=== PATIENT | male | born 1990 | race Caucasian/White ===

== ENCOUNTER 2020-05-21 13:51 | Outpatient (REF) | payer OTHER, SELFPAY ==
[2020-05-21 14:54] LABS: Alanine Aminotransferase 32 U/L (0-40); Albumin Level 4.5 g/dL (3.5-5.0); Alkaline Phosphatase 52 U/L (39-117); Anion Gap 10 (12-20); Aspartate Amino Transferase 32 U/L (5-37); Bilirubin Total 1.2 mg/dL (0.0-1.0); Blood Urea Nitrogen 17 mg/dL (9-16); Calcium 9.7 mg/dL (8.4-10.2); Carbon Dioxide 26 mmol/L (22-29); Chloride 107 mmol/L (96-108); Cholesterol 210 mg/dL; Estimated Glomerular Filt Rate > 60; Glucose Fasting 94 mg/dL (60-99); HDL Cholesterol 41 mg/dL; LDL Cholesterol Calculated 137 mg/dl; Potassium 4.4 mmol/L (3.3-5.1); Sodium 139 mmol/L (135-145); Triglycerides 164 mg/dL
[2020-05-21 15:15] LABS: Syphilis Screen Nonreactive (Nonreactive)
[2020-05-21 15:16] LABS: TSH reflex Free T4 1.58 uIU/mL (0.32-4.0)
[2020-05-21 17:21] LABS: CT PCR NOT DETECTED (Not Detect.); NG PCR NOT DETECTED (Not Detect.)
[2020-05-23 07:55] LABS: HBc Num1 0.04 S/CO (0.00-0.79); HIV AB/AG Nonreactive (Nonreactive); HIV Num 1 0.06 S/CO (0.00-0.99); Hepatitis B Core Antibody Nonreactive (Nonreactive); ~HepC Num1 0.08 S/CO (0.00-0.79); ~Hepatitis C Antibody Nonreactive (Nonreactive)
[2020-05-23 08:13] LABS: HBS Num1 > 1000.00 mIU/mL (0-7.99); HBsAGNum1 0.32 S/CO (0.00-0.99); Hepatitis B Surface Antigen Negative (Negative); ~Hepatitis B Surface Antibody REACTIVE (Nonreactive)
== END 2020-05-21 13:52 | disposition home or self-care (01) ==
LOC: HO.LAB 13:51
PROVIDERS: PCP Family Medicine; Visit Provider Family Medicine
DX: Z00.00 Encounter for general adult medical examination without abnormal findings (principal); Z11.3 Encounter for screening for infections with a predominantly sexual mode of transmission
CPT/HCPCS: 80053; 80061; 84443; 86704; 86706; 86780; 86803; 87340; 87389; 87491; 87591

== ENCOUNTER 2021-06-24 08:02 | Outpatient (REF) | payer OTHER, SELFPAY ==
[2021-06-24 09:30] LABS: Alanine Aminotransferase 32 U/L (0-40); Albumin Level 4.3 g/dL (3.5-5.0); Alkaline Phosphatase 52 U/L (39-117); Anion Gap 12 (12-20); Aspartate Amino Transferase 25 U/L (5-37); Bilirubin Total 1.1 mg/dL (0.0-1.0); Blood Urea Nitrogen 14 mg/dL (9-16); Calcium 9.8 mg/dL (8.4-10.2); Carbon Dioxide 27 mmol/L (22-29); Chloride 107 mmol/L (96-108); Cholesterol 208 mg/dL; Estimated Glomerular Filt Rate > 60; Glucose Fasting 100 mg/dL (60-99); HDL Cholesterol 37 mg/dL; LDL Cholesterol Calculated 121 mg/dl; Potassium 4.2 mmol/L (3.3-5.1); Sodium 142 mmol/L (135-145); Total Protein 7.1 g/dL (6.5-8.0); Triglycerides 254 mg/dL
[2021-06-24 09:51] LABS: TSH reflex Free T4 2.14 uIU/mL (0.32-4.0)
[2021-06-24 12:03] LABS: HBc Num1 0.06 S/CO (0.00-0.79); HBsAGNum1 0.16 S/CO (0.00-0.99); Hepatitis B Core Antibody Nonreactive (Nonreactive); Hepatitis B Surface Antigen Negative (Negative); ~HepC Num1 0.09 S/CO (0.00-0.79); ~Hepatitis B Surface Antibody REACTIVE (Nonreactive); ~Hepatitis C Antibody Nonreactive (Nonreactive)
[2021-06-24 12:33] LABS: HIV AB/AG Nonreactive (Nonreactive)
[2021-06-24 12:38] LABS: HIV Num 1 0.05 S/CO (0.00-0.99)
[2021-06-24 12:44] LABS: Syphilis Screen Nonreactive (Nonreactive)
== END 2021-06-24 08:03 | disposition home or self-care (01) ==
LOC: HO.LAB 08:02
PROVIDERS: PCP Family Medicine; Visit Provider Family Medicine
DX: Z00.00 Encounter for general adult medical examination without abnormal findings (principal); Z11.3 Encounter for screening for infections with a predominantly sexual mode of transmission; Z13.220 Encounter for screening for lipoid disorders; Z13.29 Encounter for screening for other suspected endocrine disorder; Z11.59 Encounter for screening for other viral diseases
CPT/HCPCS: 36415; 80053; 80061; 84443; 86704; 86706; 86780; 86803; 87340; 87389

== ENCOUNTER 2021-12-02 08:23 | Outpatient (REF) | payer OTHER, SELFPAY ==
[2021-12-02 09:08] LABS: Estimated Average Glucose 94 mg/dL; Hemoglobin A1c % 4.9 %
[2021-12-02 09:35] LABS: Alanine Aminotransferase 27 U/L (0-40); Albumin Level 4.4 g/dL (3.5-5.0); Alkaline Phosphatase 46 U/L (39-117); Anion Gap 14 (12-20); Aspartate Amino Transferase 20 U/L (5-37); Bilirubin Total 0.6 mg/dL (0.0-1.0); Blood Urea Nitrogen 18 mg/dL (9-16); Calcium 9.4 mg/dL (8.4-10.2); Carbon Dioxide 26 mmol/L (22-29); Chloride 106 mmol/L (96-108); Cholesterol 231 mg/dL; Estimated Glomerular Filt Rate > 60; Glucose Fasting 98 mg/dL (60-99); HDL Cholesterol 37 mg/dL; LDL Cholesterol Calculated 158 mg/dl; Potassium 4.4 mmol/L (3.3-5.1); Sodium 142 mmol/L (135-145); Triglycerides 181 mg/dL
[2021-12-02 09:48] LABS: TSH reflex Free T4 2.33 uIU/mL (0.32-4.0)
== END 2021-12-02 08:24 | disposition home or self-care (01) ==
LOC: HO.LAB 08:23
PROVIDERS: PCP Family Medicine; Visit Provider Family Medicine
DX: Z00.00 Encounter for general adult medical examination without abnormal findings (principal); R73.01 Impaired fasting glucose
CPT/HCPCS: 36415; 80053; 80061; 83036; 84443

== ENCOUNTER 2022-04-21 19:21 | Emergency (ER) | payer OTHER, SELFPAY ==
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
[2022-04-21 20:19] VITALS: BP 141/87; PULSE 60; RESP 16; TEMP 36.8; O2SAT 98; BMI 27.3
--- OUTSIDE RECORDS SUMMARY | 2022-04-21 20:47 | XMS_ITS | Continuity of Care Document ---
:1990 Author Organization [facility] Care Team Providers Name Role Phone DOD-MS Unavailable Unavailable Problems Combined list of problems from Department of Defense and Veterans Affairs facilities. It does not include entries that were removed or entered in error. Problem Status Onset Date Problem Type Date of Comments Source Resolution Sprain of Inactive 06/21/2018 Condition DoD unspecified ligament of left ankle Low back pain Inactive 06/21/2018 Condition DoD Other hemorrhoids Inactive 03/03/2018 Condition D oD common cold Active Condition DoD gastroenteritis Active Condition DoD Medications Combined list of outpatient medications from Department of Defense and Veterans Affairs facilities. Medications provided include 1) outpatient medications from the last 15 months, and 2) patient-reported medications. Medication Details Route Status Patient Prescription Prescription Last Ordering Order Source Instructions Expires Number Dispense Provider Date Date cefdinir Ordered Ambulat 300 mg oral 0 total refill(s) ory capsule Pharmac y fluticasone fluticasone 50 mcg/inh nasal spray Ordered Ambulat 50 mcg/inh Start Date: 10/31/20 ory nasal spray Status: Ordered Pharmac y Allergies, Adverse Reactions, Alerts Combined list of allergies from Department of Defense and Veterans Affairs facilities. It does not include entries that were removed or entered in error. Substance Category Reaction Severity Reaction Status Date Comments S ource type Reported Penicillins Propensity Active Ambulatory to adverse 4 Pharm acy reactions to substance Immunizations Combined list of available immunizations from the Department of Defense and Veterans Affairs facilities. Immunization Series Date Administered Site Reaction Lot CVX Drug St atus Comments Source Given By Number Code Marketing Information Analyst Influenza, 0 12/01/ [id number] 150 SmithKline complet I nfluenza DoD injectable, 2021 ([facility]) ed , quadrivalent, inject abl preservative e, free quadrival ent, preservat shahla free influenza, 5 158 GlaxoSmithKli comple t influenza, injectable, quadrivalent Ambulat injectable, 2020 ne ed 12/14/20 ory quadrivalent Given P harmac y influenza, 9 S 158 [facility] complet i nfluenza DoD injectable, 2020 (SKB) ed , quadrivalent, inject abl contains e, preservative quadriv al ent, contains preservat shahla COVID Vaccine TRS PFIZER complet CO VID Vaccine ? Pfizer Ambulat ? Pfizer 2020 ed 12/04/20 or y Given Pharmac y COVID-19, 12/04/ FIELD, Pfizer Not COVID-1 9, DoD mRNA, LNP-S, 2020 Manufacturing Given mRNA, PF, 30 [place] LNP-S, mcg/0.3 mL (PFR) PF, 30 dose mcg/0.3 mL dose SARS-COV-2 0 12/04/ Unknown, TRS 208 Pfizer, Inc compl et SARS-COV- DoD (COVID-19) 2020 Provider (PFR) ed 2 vaccine, (COVID-19 mRNA, spike ) protein, LNP, vaccin e, preservative mRNA, free, 30 spike mcg/0.3mL protein, dose LNP, preservat shahla free, 30 mcg/0.3mL dose COVID Vaccine TRS PFIZER complet CO VID Vaccine ? Pfizer Ambulat ? Pfizer 2020 ed 10/30/20 ory Given Pharmac y COVID-19, FIELD, Pfizer Not COVID-1 9, DoD mRNA, LNP-S, 2020 Manufacturing Given mRNA, PF, 30 [place] LNP-S, mcg/0.3 mL (PFR) PF, 30 dose mcg/0.3 mL dose SARS-COV-2 0 10/30/ Unknown, TRS 208 Pfizer, Inc compl et SARS-COV- DoD (COVID-19) 2020 Provider (PFR) ed 2 vaccine, (COVID-19 mRNA, spike ) protein, LNP, vaccin e, preservative mRNA, free, 30 spike mcg/0.3mL protein, dose LNP, preservat shahla free, 30 mcg/0.3mL dose influenza, 150 Seqirus complet in fluenza, injectable, quadrivalent-pf Ambulat injectable, 2020 077 ed 02/26/20 ory quadrivalent- Given Pharmac pf y Influenza, 1 150 Seqirus (SEQ) comp let Influenza DoD injectable, 2020 077 ed , quadrivalent, inject abl preservative e, free quadrival ent, preservat shahla free influenza, [id number] Seqirus complet in fluenza, injectable, quadrivalent-pf Ambulat injectable, 2018 520 ed 11/09/18 ory quadrivalent- Given Pharmac pf y Influenza, 7 [id number] 150 Seqirus (SEQ) comp let Influenza DoD injectable, 2018 520 ed , quadrivalent, inject abl preservative e, free quadrival ent, preservat shahla free influenza, [id number] 158 Seqirus complet in fluenza, injectable, quadrivalent Ambulat injectable, 2018 ed 11/12/17 ory quadrivalent Given P harmac y yellow fever [id number] 37 sanofi complet y ellow fever vaccine Ambulat vaccine 2018 pasteur ed 11/12/17 or y Given Pharmac y yellow fever 1 [id number] 37 Sanofi complet y ellow DoD vaccine 2018 Pasteur (PMC) ed feve r vaccine influenza, 6 [id number] Seqirus (SEQ) comp let influenza DoD injectable, 2018 ed , quadrivalent, inject abl contains e, preservative quadriv al ent, contains preservat shahla anthrax 10/15/ [id number] 24 Emergent complet anth rax vaccine Ambulat vaccine 2018 Biosolutions ed 8 ory Given Pharmac y typhoid Vi [id number] sanofi complet typ hoid Vi capsular polysaccharide vac Ambulat capsular 2018 pasteur ed 10/15/17 or y polysaccharid Given Pharmac e vac y measles/mumps 10/15/ [id number] 03 Merck & complet measles/mumps/rubella virus vaccine Ambulat /rubella 2018 Company Inc ed 8 ory virus vaccine Given Pharmac y measles, 2 10/15/ [id number] 03 Merck (MSD) complet measles, DoD mumps and 2018 ed mumps and rubella virus rubell a vaccine virus vaccine anthrax 6 10/15/ [id number] 24 Emergent complet anth rax DoD vaccine 2018 Bio[employer]ense ed vaccine [place] ([facility]) typhoid Vi 1 [id number] Sanofi complet typ hoid DoD capsular 2018 Pasteur (PMC) ed Vi polysaccharid capsul ar e vaccine polysacch aride vaccine Influenza, [id number] Seqirus complet Inf luenza, inj, MDCK, quadrivalent-pf Ambulat inj, MDCK, 2017 ed 11/21/16 ory quadrivalent- Given Pharmac pf y Influenza, 1 [id number] Seqirus (SEQ) compl et Influenza DoD injectable, 2017 ed , Madin [place] injectab l Canine e, Madin Kidney, [place] preservative Canine free, Kidney, quadrivalent preserv at shahla free, quadrival ent anthrax A 24 Emergent complet anth rax vaccine Ambulat vaccine 2017 Biosolutions ed 7 ory Given Pharmac y anthrax 5 A 24 Emergent complet anth rax DoD [facility] vaccine [place] ([facility]) anthrax 03/20/ [id number] 24 Emergent complet anth rax vaccine Ambulat vaccine 2017 Biosolutions ed ory Given Pharmac y anthrax 4 03/20/ [id number] 24 Emergent complet anth rax DoD vaccine [facility] ed vaccine [place] ([facility]) influenza, 11/21/ CS979 140 GlaxoSmithKli comple t influenza, seasonal, injectable-pf Ambulat seasonal, 2015 ne ed 11/22/15 o ry injectable-pf Given Pharmac y Influenza, 1 [id number] 140 SmithKline complet I nfluenza DoD seasonal, 2016 (SKB) ed , injectable, seasonal , preservative injecta bl free e, preservat shahla free anthrax 07/18/ [id number] 24 Emergent complet anth rax vaccine Ambulat vaccine 2016 Biosolutions ed ory Given Pharmac y anthrax 3 07/18/ [id number] 24 Emergent complet anth rax [facility]D [facility] [place] ([facility]) anthrax 01/11/ [id number] 24 Emergent complet anth rax vaccine Ambulat vaccine 2015 Biosolutions ed ory Given Pharmac y anthrax 2 01/11/ [id number] 24 Emergent complet anth rax DoD vaccine [facility] ed vaccine [place] ([facility]) influenza, [id number] CSL [place] comple t influenza, seasonal, injectable Ambulat seasonal, 2014 1A ed 11/09/14 or y injectable Given Pha rmac y Influenza, 3 [id number] 141 CSL complet Infl uenza DoD seasonal, 2014 1A Biotherapies, ed , injectable Inc. (CSL) seas onal, injectabl e anthrax 10/19/ [id number] 24 Emergent complet anth rax vaccine Ambulat vaccine 2015 Biosolutions ed ory Given Pharmac y vaccinia 10/19/ VV04-00 75 [place] complet vacci linden (smallpox) vaccine Ambulat (smallpox) 2014 3A Healthcare ed 10/19 ory vaccine Corporation Given Pharmac y anthrax 1 10/19/ [id number] 24 Emergent complet anth rax DoD vaccine 2015 Bio[employer]ense ed vaccine [place] (MIP) vaccinia 1 10/19/ VV04-00 75 ACAMBIS-BAXTE comple t vaccinia DoD (smallpox) 2014 3A R HEALTH[facility]ARE ed (s mallpox vaccine (JACKSON) ) vaccine hepatitis A 3LP 52 GlaxoSmithKli compl et hepatitis A adult vaccine Ambulat adult vaccine 2014 ne ed 06/08/14 ory Given Pharmac y hepatitis B [id number] Merck & complet h epatitis B adult vaccine Ambulat adult vaccine 2015 Company Inc ed 06/08/14 ory Given Pharmac y influenza, 532 150 ID Biomedical comple t influenza, injectable, quadrivalent-pf Ambulat injectable, 2014 ed 06/08/14 o ry quadrivalent- Given Pharmac pf y hepatitis B 3 [id number] Merck (MSD) compl et hepatitis DoD vaccine, 2014 ed B adult dosage vaccine , adult dosage hepatitis A 3 3LP 52 SmithKline complet hepatitis DoD vaccine, 2014 (SKB) ed A adult dosage vaccine , adult dosage Influenza, 2 532 150 (IDB) complet Influe nza DoD injectable, 2014 ed , quadrivalent, inject abl preservative e, free quadrival ent, preservat shahla free hepatitis X72 104 GlaxoSmithKli complet hepatitis A-hepatitis B vaccine Ambulat A-hepatitis B 2013 ne ed 09/10/13 ory vaccine Given Pharma c y hepatitis A 1 X72 104 SmithKline complet hepatitis DoD and hepatitis 2013 (SKB) ed A and B vaccine hepatitis B vaccine measles/mumps [id number] Merck & complet measles/mumps/rubella virus vaccine Ambulat /rubella 2014 Company Inc ed ory virus vaccine Given Pharmac y hepatitis 925P2 104 GlaxoSmithKli complet hepatitis A-hepatitis B vaccine Ambulat A-hepatitis B 2013 ne ed 4 ory vaccine Given Pharma c y measles, 1 [id number] 03 Merck (MSD) complet measles, DoD mumps and 2014 ed mumps and rubella virus rubell a vaccine virus vaccine hepatitis A 1 P2 104 SmithKline complet hepatitis DoD and hepatitis 2013 (SKB) ed A and B vaccine hepatitis B vaccine tuberculin [id number] 96 sanofi complet tub erculin purified protein derivative Ambulat purified 2013 pasteur ed 07/19/13 o ry protein Given Pharma c derivative y tetanus, 472S7 115 GlaxoSmithKli complet tetanus, diphtheria, acellular pertussis Ambulat diphtheria, 2013 ne ed 07/19/13 ory acellular Given Phar mac pertu is y adenovirus [id number] 143 Teva complet jairo ovirus vaccine, live Ambulat vaccine, live 2013 1 Pharmaceutica ed 07/19/13 ory ls Given Pharmac y influenza, [id number] 141 sanofi complet inf luenza, seasonal, injectable Ambulat seasonal, 2013 pasteur ed 07/19/13 ory injectable Given Pha rmac y poliovirus [id number] 10 sanofi complet polio virus vaccine, inactivated Ambulat vaccine, 2013 pasteur ed 07/19/13 o ry inactivated Given Ph armac y meningococcal [id number] 114 sanofi complet meningococcal A,C,Y,W-135 (MCV4P) Ambulat A,C,Y,W-135 2013 pasteur ed 4 ory (MCV4P) Given Pharma c y poliovirus 1 [id number] 10 Sanofi complet polio viru DoD vaccine, 2013 Pasteur (PMC) ed s inactivated vaccine, inactivat ed meningococcal 1 07/19/ [id number] 114 Sanofi complet meningoco DoD polysaccharid 2013 Pasteur (PMC) ed ccal e (groups A, polysac ch C, Y and aride W-135) (groups diphtheria A, C, Y toxoid and conjugate W-135) vaccine diphtheri (MCV4P) a toxoid conjugate vaccine (MCV4P) tetanus 1 472S7 115 SmithKline complet teta nus DoD toxoid, 2013 (SKB) ed toxoid, reduced reduced diphtheria diphtheri toxoid, and a toxoid , acellular and pertu is acellular vaccine, pertussis adsorbed vaccine, adsorbed Influenza, 1 07/19/ [id number] 141 Sanofi complet Inf luenza DoD seasonal, 2014 Pasteur (PMC) ed , injectable seasonal, injectabl e Adenovirus, 1 [id number] 143 [place] complet Aisha noviru DoD type 4 and 2014 1 Laboratories ed s, type 4 type 7, live, (BRR) and ty pe oral 7, live, oral measles virus 0 () Not measl es DoD vaccine 2014 Given virus vaccine varicella 0 () Not varicella DoD virus vaccine 2014 Given virus vaccine Vital Signs Combined list of inpatient and outpatient Vital Signs from Department of Defense and Veterans Affairs, ranging from 12 months to all on record, depending upon the facility. Vital Sign Value Date Comments Source No data available for this section Ambulatory Pharmacy Encounters Combined list of: 1) Encounters from Department of Veterans Affairs facilities going back up to the last 18 months. 2) Encounters from the Department of Defense facilities going back up to 280 months. Location Location Encounter Encounter Reason Attending ADM DC Stat us Disposition Source Details Type Number For Provider Date Date Visit OUTPATIENT [id number] Notes ELEUTERIO, 07/23 Released w/o KAITLIN Smith Entered GRACIE ROMERO Limitations A ntonio by: JOSHUA Martínez nt Jul y, [place] 101[address](O ------- ptometr ------- y ------- Clinic ------- BMT -- [facility]) OUTPATIENT [id number] Notes AMBAR, 08/13 Sick at KAITLIN Smith Entered [facility]IL[facility] Home/Quarter An vince by: Bebeto Grullon Aug y, [place] 0[address](T ------- rainee ------- Health ------- [place], ------- [place] -- d) Diarrhe a OUTPATIENT [id number] f/u DANIELLE, 08/16 Relea sed w/o KAITLIN Smith diarrharvey DEEP [place]itations [place] [address]([address] [facility] [place], [place] d) OUTPATIENT [id number] Drew PADILLA, 12/15 Released w/o KAITLIN Smith Entered Limitations Anto nio by: JOYCE PADILLA, y TOM Treatme NOOSVALDO nt Dec y, [place] 10[address](A ------- FNG 104 ------- Med ------- Sq-FM) ------- -- PHAQ OUTPATIENT [id number] Drew RUTH, 10/13 Release d w/o KAITLIN Smith Entered Limitations Anto nio by: VIKTORIYA ayon ,STEPHARVEY Treatme Ankit kaiser Oct y, [place] 15[address](A ------- FNG 104 ------- Med ------- Sq-FM) ------- -- PHAQ OUTPATIENT [id number] Drew OTERO, 10/15 Release d w/o KAITLIN Smith Entered LORI Limitations Ant onio by: Edgar OTERO y ,LORI Nguyen J Oct y, [place] 0742 [address](A ------- FNG 104 ------- Med ------- Sq-FM) ------- -- [facility] [id number] Drew MATUTE, 10/28 68[facility] CONSULT Entered [place] [facility] by: (HAZEL GONZALEZ R Cell) 28 Oct 2017 1319 ------- ------- ------- ------- -- Malaria Meds OUTPATIENT [id number] Theater 03/03 Released w/o Theater Limitations Facil it y OUTPATIENT [id number] Theater 06/19 Released w/o Theater 4 Provider Limitations Facil it y OUTPATIENT [id number] Theater 06/21 Released w/o Theater 9 Provider Limitations Facil it y OUTPATIENT [id number] Drew PADILLA, 06/27 Released w/o KAITLIN Smith 6 Entered Limitations Anto nio by: VICKIE Vallejo EL June y, [place] 1325 [address](A ------- FNG 104 ------- Med ------- Sq-FM) ------- -- Post-Murphy t OUTPATIENT [id number] Drew VALERIE08/24 Released w/o KAITLIN Smith 8 Entered Limitations Anto nio by: JOYCE nany Le TOM Treatme N 18 nt Aug y, [place] [address](A ------- FNG 104 ------- Med ------- Sq-FM) ------- -- DRHA OUTPATIENT [id number] Drew VALERIE10/25 Released w/o KAITLIN Smith 2 Entered Limitations Anto nio by: JOYCE nany Le TOM Treatme N 18 nt Oct y, [place] 1154 [address](A ------- FNG 104 ------- Med ------- Sq-FM) ------- -- PHAQ OUTPATIENT [id number] Drew PADILLA, 11/09 Released w/o KAITLIN Smith 2 Entered Limitations Anto nio by: JOYCE nany Le TOM Treatme N nt Nov y, [place] 6725 [address](A ------- FNG 104 ------- Med ------- Sq-FM) ------- -- DRHA OUTPATIENT [id number] Drew PADILLA11/10 Released KAITLIN Smith 0 Entered with Nestor by: JOYCE Arteaga/Alea Renteria y TOM Treatme N nt Nov y, [place] 1211 [address](A ------- FNG 104 ------- Med ------- Sq-FM) ------- -- back pain OUTPATIENT [id number] Drew PADILLA, 03/08 Released KAITLIN Smith 3 Entered with Nestor by: JOYCE Work/Duty Alea Le y TOM Treatme NOONE nt Feb y, [place] 1203 [address](A ------- FNG 104 ------- Med ------- Sq-FM) ------- -- PHAQ OUTPATIENT [id number] Drew VALERIE03/13 Released KAITLIN Smith 1 Entered with Nestor by: JOYCE Work/Duty Alea Le y TOM Treatme NOONE nt Mar y, [place] [address](A ------- FNG 104 ------- Med ------- Sq-FM) ------- -- back pain f/u TELE [id number] Drew RIOS03/30 KAITLIN Smith CONSULT 8 Entered Nestor by: nany Brown Treatme NOONE nt Mar y, [place] 1011 [address](A ------- FNG 104 ------- Med ------- Sq-FM) ------- -- F/U OUTPATIENT [id number] Drew PADILLA03/28 Released w/o KAITLIN Smith 0 Entered Limitations Anto nio by: nany Brown TOM Treatme NOONE nt Mar y, [place] 1445 [address](A ------- FNG 104 ------- Med ------- Sq-FM) ------- -- PHAQ OUTPATIENT [id number] Drew RUTH 04/28 Release d w/o KAITLIN Smith 8 Entered Limitations Anto nio by: VIKTORIYA RUTH y ,QING Treatme N VIKTORIYA nt Apr Facilit 2021 y, [place] 5437 [address](A ------- FNG 104 ------- Med ------- Sq-FM) ------- -- PHAQ History [id number] 05/14 05/14 No 41823 /2021 Facilit y Access Lifetime [id number] 05/14 Ambula t Pharmacy 47 ory Pharmac y OUTPATIENT [id number] Notes , 04/09 Release d w/o KAITLIN Smith 6 Entered Limitations Anto nio by: VIKTORIYA RUTH QING ayon Apr Facilit 2022 y, [place] [address](A ------- FNG 104 ------- Med ------- Sq-FM) ------- -- PHAQ Procedures Combined list of: 1) Procedures from Department of Veterans Affairs facilities going back up to the last 18 months, not all VA non-surgical procedures are included; 2) All procedures from the Department of Defense facilities. Procedure Procedure Type Code Date Perfomer Comments Sourc e No data available Am bulatory for this section Pha rmacy Pulse Oximetry Pulse Oximetry 06937 08/17/19 [facility] 14 DEEP C Blood pre ure 08/17/19 [facility] cuff only 14 DEEP C Spectacles Spectacles 78760 [facility] F[facility] Services Fitting 14 R Monofocal Except Monofocal Except For Aphakia [place] [address] 07/24/19 [facility] Refractive State Refractive State 14 [place] [address] 07/24/19 [facility]OTT[facility] Pham [facility] Visual Acuity, Visual Acuity, 14 R Quantitative, Quantitative, Bilateral Bilateral Psychiatric Psychiatric [address] [facility] Diagnostic Diagnostic [facility] [place] Evaluation Evaluation Comprehensive Comprehensive Examination Examination Psychometric Psychometric 59314 [facility] Emotional / Emotional / [facility] [place] Behavioral A e Behavioral ment Assessment [facility] Management Individual Individual Patient Patient Clinical Social Clinical Social 54705 [facility] Work Counseling Work Counseling MIRYAM G Family Conjoint Family Conjoint Non-Physician Non-Physician [id number] MADHU, Do D Phone Call To Phone Call To [facility] [place] Patient/Provider Patient/Provider Brief (5-10min) Brief (5-10min) Waiver services; Dominick HILL not otherwise JACINTA A specified (NOS) BLOOD PRESSURE 08/17/19 DoD CUFF ONLY 14 THERAPEUTIC, 08/02/19 DoD PROPHYLACTIC, OR 14 DIAGNOSTIC INJECTION (SPECIFY SUBSTANCE OR DRUG); SUBCUTANEOUS OR INTRAMUSCULAR SCREENING TEST OF 07/24/19 Do D VISUAL ACUITY, 14 QUANTITATIVE, BILATERAL TELE ASSESS & MGT 02/05/20 Do D SRV PROV QUAL 20 NONPHYS HLTH CARE PRO TO EST PAT,PARENT,GUARD NOT ORIG REL ASSESS & MGT SRV PROV W/IN PREV 7 DAYS NOR LEAD ASSESS & MGT SRV/PX W/IN NXT 24 HR/SOON APT;5-10 MIN MED DIS TELE ASSESS & MGT 09/25/19 Do D SRV PROV QUAL 20 NONPHYS HLTH CARE PRO TO EST PAT,PARENT,GUARD NOT ORIG REL ASSESS & MGT SRV PROV W/IN PREV 7 DAYS NOR LEAD ASSESS & MGT SRV/PX W/IN NXT 24 HR/SOON APT;5-10 MIN MED DIS WAIVER SERVICES; 09/18/19 DoD NOT OTHERWISE 20 SPECIFIED (NOS) FAMILY 09/14/19 DoD PSYCHOTHERAPY 20 (CONJOINT PSYCHOTHERAPY) (WITH PATIENT PRESENT), 50 MINUTES BRIEF 09/11/19 DoD EMOTIONAL/BEHAVIO 20 RAL ASSESSMENT (EG, DEPRESSION INVENTORY, ATTENTION-DEFICIT /HYPERACTIVITY DISORDER [ADHD] SCALE), WITH SCORING AND DOCUMENTATION, PER STANDARDIZED INSTRUMENT BRIEF 09/07/19 DoD EMOTIONAL/BEHAVIO 20 RAL ASSESSMENT (EG, DEPRESSION INVENTORY, ATTENTION-DEFICIT /HYPERACTIVITY DISORDER [ADHD] SCALE), WITH SCORING AND DOCUMENTATION, PER STANDARDIZED INSTRUMENT PSYCHIATRIC 09/06/19 DoD DIAGNOSTIC 20 EVALUATION Social History Combined list of available smoking, tobacco, and other social history from Department of Defense andVeterans Affairs facilities. Social History Type Response Date Comment Source This section is an empty social history section. DoD Assessment and Plan Combined list of future care activities from Department of Defense and Veterans Affairs facilities (e.g., assessment and plan notes, appointments, orders, and referrals). Additional future care activities may be listed in the Plan of Care section. Result Assessment and Plan Date Source Assessment and Plan No data available for this 04/22/2022 A mbulatory Pharmacy section Functional Status Combined list of recent functional and cognitive assessments recorded at Department of Defense and Veterans Affairs (VA).VA Functional [place] Measurement (FIM) Scale: 1 = Total Assistance (Subject = 0% +), 2 = Maximal Assistance (Subject = 25% +), 3 = Moderate Assistance (Subject = 50% +), 4 = Mi nimal Assistance (Subject = 75% +), 5 = Supervision, 6 = Modified [place] (Device), 7 = Complete [place] (Timely, Safely). Assessment Source Assessment Type Assessment Assessment Assessmen t Date/Time Skill Score Details No data available for this section
--- OUTSIDE RECORDS SUMMARY | 2022-04-21 20:47 | XMS_ITS ---
:1990 Author Care Team Providers Name [id number] Unavailable Allergies Code Code System Name Reaction Severity Status Onset Penicillins ? ? Active ? Medications No Medications Reported Problems Name Status Onset Date Source ? 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 Procedures None recorded. Results Lab Results Date Name Specimen Result Interpretation Description Value Range Status Address ? 01/13/2022 CBC W/ BLOOD ? Wbc 5.7 3.4-10.8 Final [facility] x10e3/uL x10e3/uL [facility]: [address], [place] ? ? BLOOD ? Rbc 5.15 4.14-5.80 Final [facility]OUS x10e6/uL x10e6/uL [facility]: [address], [place] ? ? BLOOD ? Hemoglobin 16.0 g/dL 13.0-17.7 Final [facility] g/dL [facility]: [address], [place] ? ? BLOOD ? Hematocrit 46.1 % 37.5-51.0 Final [facility] % [facility]: [address], [place] ? ? BLOOD ? Mcv 90 fL 79-97 fL Final [facility]OUS [facility]: [address] [place] ? ? BLOOD ? Mch 31.1 pg 26.6-33.0 Final [facility]OUS pg [facility]: [address] [place] ? ? BLOOD ? Mchc 34.7 g/dL 31.5-35.7 Final [facility] g/dL [facility]: [address], [place] ? ? BLOOD ? Rdw 12.3 % 11.6-15.4 Final [facility] % [facility]: [address] [place] ? ? BLOOD Below Platelets 137 150-450 Final [facility] Low x10e3/uL x10e3/uL [facility]: [address] [place] ? ? BLOOD ? Neutrophils 64 % not Final [facility] estab. % [facility]: [address] [place] ? ? BLOOD ? Lymphs 23 % not Final [facility]OUS estab. % [facility]: [address] [place] ? ? BLOOD ? Monocytes 10 % not Final [facility] estab. % [facility]: [address], [place] ? ? BLOOD ? Eos 2 % not Final [facility]OUS estab. % [facility]: [address], [place] ? ? BLOOD ? Basos 1 % not Final [facility] estab. % [facility]: [address] [place] ? ? BLOOD ? Immature fish grader ? Cancelled [facility] Cells [facility]: [address], [place] ? ? BLOOD ? Neutrophils 3.6 1.4-7.0 Final [facility] V[facility] (Absolute) x10e3/uL x10e3/uL [facility]: [address], [place] ? ? BLOOD ? Lymphs 1.3 0.7-3.1 Final [facility]OUS (Absolute) x10e3/uL x10e3/uL [facility]: [address], [place] ? ? BLOOD ? Monocytes(ab 0.6 0.1-0.9 Final [facility] solute) x10e3/uL x10e3/uL [facility]: [address], [place] ? ? BLOOD ? Eos 0.1 0.0-0.4 Final [facility]ENOUS (Absolute) x10e3/uL x10e3/uL [facility]: [address], [place] ? ? BLOOD ? Baso 0.1 0.0-0.2 Final [facility] (Absolute) x10e3/uL x10e3/uL [facility]: [address], [place] ? ? BLOOD ? Immature 0 % not Final [facility] Granulocytes estab. % [facility]: [address], [place] ? ? BLOOD ? Immature 0.0 0.0-0.1 Final [facility] Grans (Abs) x10e3/uL x10e3/uL P [facility]: [address], [place] ? ? BLOOD ? Nrbc fish grader ? Cancelled [facility]OUS [facility]: [address] [place] ? ? BLOOD ? Hematology note: ? Final [facility] Comments: [facility]: [address] [place] 01/13/2022 CMP, BLOOD Above Glucose 100 mg/dL 70-99 Final [facility] Serum or VENOUS High mg/dL [facility]: [address] [place] ? ? BLOOD ? Bun 18 mg/dL 6-20 Final [facility] mg/dL [facility]: [address] [place] ? ? BLOOD ? Creatinine 0.99 0.76-1.27 Final [facility] mg/dL mg/dL [facility]: [address] [place] ? ? BLOOD ? Egfr 106 >59 Final [facility] mL/min/1. mL/min/1. [facility]: [address] [place] ? ? BLOOD ? BUN/creatini 18 9-20 Final [facility] VENOUS ne Ratio [facility]: [address] [place] ? ? BLOOD ? Sodium 140 134-144 Final [facility] mmol/L mmol/L [facility]: [address] [place] ? ? BLOOD ? Potassium 4.6 3.5-5.2 Final [facility] mmol/L mmol/L [facility]: [address] [place] ? ? BLOOD ? Chloride 103 96-106 Final [facility] mmol/L mmol/L [facility]: [address] [place] ? ? BLOOD ? Carbon 25 mmol/L 20-29 Final [facility] Dioxide, mmol/L [facility]: [address] [place] ? ? BLOOD ? Calcium 9.6 mg/dL 8.7-10.2 Final [facility] mg/dL [facility]: [address] [place] ? ? BLOOD ? Protein, 7.0 g/dL 6.0-8.5 Final [facility] Total g/dL [facility]: [address] [place] ? ? BLOOD ? Albumin 4.9 g/dL 4.1-5.2 Final [facility] g/dL [facility]: [address] [place] ? ? BLOOD ? Globulin, 2.1 g/dL 1.5-4.5 Final [facility] Total g/dL [facility]: [address] [place] ? ? BLOOD Above A/g Ratio 2.3 1.2-2.2 Final [facility] High [facility]: [address] [place] ? ? BLOOD ? Bilirubin, 0.9 mg/dL 0.0-1.2 Final [facility] Total mg/dL [facility]: [address] [place] ? ? BLOOD ? Alkaline 50 IU/L 44-121 Final [facility] Phosphatase IU/L [facility]: [address] [place] ? ? BLOOD ? Ast (Sgot) 20 IU/L 0-40 IU/L Final [facility]: [address] [place] ? ? BLOOD ? Alt (Sgpt) 24 IU/L 0-44 IU/L Final [facility]: [address] [place] 01/13/2022 Lipase, BLOOD ? Lipase 18 U/L 13-78 U/L Final [facility] Serum or VENOUS [facility]: [address] [place] Past Encounters Encounter Date Diagnosis Provider 01/13/2022 Abdominal Pain Katherine Cardona, DO: [address] [place] [address], Ph. Social History Tobacco Smoking Status Never Smoker Vaccine List Notes: covid; yes flu: yes td: yes Plan of Care Patient Instructions Brat diet consists of: Bananas Rice Applesauce Bertram. Use this diet for 24- 48 hours and adva nce if symptoms are improving. Abdominal pain can have a wide variety o f causes. Although we currently do not believe your pain is related to appendicitis or other serious cause, we cannot totally exclude the possibility of your symp toms being due a serious underlying prob maria elena. Unless ALL of your symptoms have COMPLETELY resolved, you should follow up at the nearest Emergency Department in 6 hours to be rechecked. If your pain worse ns, you should not hesitate to go to the Emergency Department to have your condition further evaluated. You should also follow up immediately if you develop any new symptoms which concern you, such as f ever, nausea, vomiting, rectal bleeding, or any other symptom that concerns you. Failure to follow up as instructed above may result in serious adverse health consequences, including permanent disability or . Reminders Provider Appointments None recorded. ? ? Lab None recorded. ? ? Referral None recorded. ? ? Procedures None recorded. ? ? Surgeries None recorded. ? ? Imaging None recorded. ? ? Vitals Height Weight BMI Blood Pressure 5 ft 7 in 200 lbs 31.3 kg/m2 144/81 mm[Hg]
[2022-04-21] MEDS: Cyclobenzaprine HCl 10 MG TABLET PO (21:56)
[2022-04-21] MEDS: Ibuprofen 400 MG TABLET PO (21:57)
== END 2022-04-21 22:10 | disposition home or self-care (01) ==
PROVIDERS: Emergency Provider Emergency Medicine Emergency Medical Services; PCP Family Medicine
DX: S80.01XA Contusion of right knee, initial encounter (principal); S33.5XXA Sprain of ligaments of lumbar spine, initial encounter; S43.102A Unspecified dislocation of left acromioclavicular joint, initial encounter; M25.512 Pain in left shoulder; M54.2 Cervicalgia; M25.561 Pain in right knee; T14.8XXA Other injury of unspecified body region, initial encounter; V43.52XA Car driver injured in collision with other type car in traffic accident, initial encounter; Y93.9 Activity, unspecified; Y92.410 Unspecified street and highway as the place of occurrence of the external cause; Y99.9 Unspecified external cause status
CPT/HCPCS: 72100; 73000; 73030; 73562; 99283

== ENCOUNTER 2022-06-30 09:49 | Outpatient (REF) | payer OTHER, SELFPAY ==
[2022-06-30 11:06] LABS: Alanine Aminotransferase 27 U/L (0-40); Albumin Level 4.2 g/dL (3.5-5.0); Alkaline Phosphatase 48 U/L (39-117); Anion Gap 11 (12-20); Aspartate Amino Transferase 23 U/L (5-37); Bilirubin Total 1.5 mg/dL (0.0-1.0); Blood Urea Nitrogen 10 mg/dL (9-16); Calcium 9.5 mg/dL (8.4-10.2); Carbon Dioxide 27 mmol/L (22-29); Chloride 107 mmol/L (96-108); Cholesterol 225 mg/dL; Estimated Glomerular Filt Rate > 60; Glucose Fasting 95 mg/dL (60-99); HDL Cholesterol 38 mg/dL; LDL Cholesterol Calculated 158 mg/dl; Potassium 4.3 mmol/L (3.3-5.1); Sodium 141 mmol/L (135-145); Total Protein 6.8 g/dL (6.5-8.0); Triglycerides 147 mg/dL
== END 2022-06-30 09:50 | disposition home or self-care (01) ==
LOC: HO.LAB 09:49
PROVIDERS: PCP Family Medicine; Visit Provider Family Medicine
DX: Z00.00 Encounter for general adult medical examination without abnormal findings (principal); R73.01 Impaired fasting glucose; E78.5 Hyperlipidemia, unspecified
CPT/HCPCS: 36415; 80053; 80061

== ENCOUNTER → 2022-07-26 11:24 | Outpatient (BNVA) | payer OTHER, SELFPAY | PROVIDERS: PCP Family Medicine; Visit Provider Physician Assistant | DX: M53.3 Sacrococcygeal disorders, not elsewhere classified (principal); M54.9 Dorsalgia, unspecified; G89.29 Other chronic pain | CPT/HCPCS: 99202 ==

== ENCOUNTER 2022-09-09 14:32 | Outpatient (REF) | payer OTHER, SELFPAY ==
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
== END 2022-09-09 14:33 | disposition home or self-care (01) ==
LOC: HO.MRI 14:32
PROVIDERS: PCP Family Medicine; Visit Provider Physician Assistant
DX: M54.9 Dorsalgia, unspecified (principal)
CPT/HCPCS: 72148

== ENCOUNTER 2022-09-23 08:33 | Outpatient (AMB) | payer OTHER, SELFPAY ==
[2022-09-23 08:40] VITALS: BP 112/62; PULSE 55; RESP 12; TEMP 36.5; O2SAT 99; BMI 32.0
--- NOTE | 2022-09-23 08:40 | MHC.PC.OV ---
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 Accompanied by: Self / Same As Patient Allergies amoxicillin [Augmentin] Allergy (Unknown, Verified 09/23/22 08:44) jaime Johnathon's Syndrome clavulanic acid [Augmentin] Allergy (Unknown, Verified 09/23/22 08:44) Jaime Johnathon's Syndrome macrolides Allergy (Unknown, Uncoded 07/08/22 08:59) Jaime Johnathon's Syndrome zithramax Allergy (Unknown, Uncoded 07/08/22 08:59) Jaime Johnathon's Syndrome Tobacco use date assessed: 09/23/22 Dental Screening Dental Screen Date: 09/23/22 Did you have a dental visit in the last 12 months?: Yes Did you have a dental problem in the last 6 months where you did not have access to dental care?: No Was dental information given to patient?: Patient has dentist HPI paperwork HPI Details 32 y/o male presents today for paperwork. Ongoing SI joint pain and has been seeing Darci Duncan. He is waiting a call from them for another appointment. He continues to do physical therapy which has been helping significantly. HPI Comments History of Present Illness Details Documentation assistance for Aldair Baca MD, was provided by Dane Cabrera,? Medical Aides Teacher on 09/23/2022 9:24 AM EST. [place], Dr. Baca, have read, observed, and verified documentation.? [facility] Medical History (Updated 09/23/22 @ 08:45 by Gabby Ly MA) No pertinent past medical history Surgical History (Updated 09/23/22 @ 08:45 by Gabby Ly MA) No pertinent past surgical history Social History Housing: House Alcohol intake: current Alcohol intake frequency: holidays/special occasions only Alcohol type: beer Patient Tobacco Use Status: Never used Tobacco e-Cigarette/Vaping Use: Never Used Second Hand Smoke Exposure: No service: Yes Current occupational status: employed Current occupation: [employer] Current occupational exposures/hazards: No Cognitive needs: No Hearing needs: No Vision needs: No Questionnaire Thrive Questionnaire Date Thrive assessed: 07/01/21 Review of Systems Const Denies chills, Denies fatigue, Denies fever(s), Denies headache(s) and Denies weakness ENT Denies dizziness and Denies headache(s) Card Denies dyspnea Resp Denies cough, Denies dyspnea, Denies wheezing and Denies other (shortness of breath) Musc Denies numbness and Denies tingling Neuro Denies dizziness, Denies headache(s), Denies numbness, Denies tingling and Denies weakness Psych Denies anxiety and Denies depression Endo Denies fatigue Aller/Immun Denies wheezing Physical exam (Primary Care) Vital Signs: Last Vital Signs Temp 97.7 F 09/23/22 08:40 Pulse 55 09/23/22 08:40 Resp 12 09/23/22 08:40 BP 112/62 09/23/22 08:40 Pulse Ox 99 09/23/22 08:40 Oxygen Delivery Method Room Air 09/23/22 08:40 BMI result Body Mass Index 32.0 Tobacco/Smoking Status: Tobacco use Status Tobacco use date assessed 09/23/22 09/23/22 08:46 Patient Tobacco Use Status Never used Tobacco 09/23/22 08:46 e-Cigarette/Vaping Use Never Used 09/23/22 08:46 Thrive Assessment: Date of Thrive Assessment Date Thrive assessed 07/01/21 09/23/22 08:46 Const General: well developed; No acute distress Nutritional Appearance: well nourished Orientation/consciousness: patient oriented x3 HENMT Head: Yes normocephalic and Yes atraumatic Eyes General: appearance normal, both eyes and all related structures Pupils: Equal, round and reactive pupils present EOM: EOMs intact bilaterally Resp Effort & Inspection: normal respiratory effort Neuro General: patient oriented x3 and gait normal Cranial nerves: Yes Equal, round and reactive pupils present Psych Affect: normal affect Assessment and Plan Assessment & Plan (1) Chronic SI joint pain: Code(s): M53.3 - Sacrococcygeal disorders, not elsewhere classified; G89.29 - Other chronic pain Plan: Ongoing right SI joint pain and inflammation which is chronic. Some improvement with physical therapy and he will continue this. Can continue celecoxib as well Follow-up with Neuro/spine; plan for right SI joint nerve block or injection therapy. Filled out [employer] forms for patient for restrictions He is unable to sit or stand greater than 1 hour without taking a break to walk for 5-10 minutes Discussed that he may benefit from a standing desk as well. Coding Level of Care Code Est Pt Level 3 (46858) Diagnoses Chronic SI joint pain M53.3; G89.29
== END 2022-09-23 09:32 | disposition home or self-care (01) ==
PROVIDERS: PCP Family Medicine; Visit Provider Family Medicine
DX: M53.3 Sacrococcygeal disorders, not elsewhere classified (principal); G89.29 Other chronic pain
CPT/HCPCS: 99213

== ENCOUNTER 2022-10-13 14:00 | Outpatient (RCR) | payer OTHER, SELFPAY ==
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
== END 2022-12-01 14:33 | disposition home or self-care (01) ==
LOC: HO.PTWFD 14:00
PROVIDERS: PCP Family Medicine; Visit Provider Family Medicine
DX: M54.9 Dorsalgia, unspecified (principal)
CPT/HCPCS: 97012; 97014; 97110; 97140; 97150; 97161; 97535

== ENCOUNTER 2023-07-20 11:25 | Outpatient (AMB) | payer OTHER, SELFPAY ==
[2023-07-20 11:48] VITALS: PULSE 64; O2SAT 98; BMI 32.1
--- NOTE | 2023-07-20 11:48 | AM.OFFWIN_ITS ---
Intake Vital Signs 3 07/20/23 11:48 Height 5 ft 8 in Weight 211 lb BMI 32.1 Pulse 64 Pulse Source Pulse Oximeter Pulse Oximetry (%) 98 Oxygen Delivery Method Room Air Intake Visit Reasons: est/ need order for blood work std testing Patient Tobacco Use Status: Never used Tobacco Allergies amoxicillin [Augmentin] Allergy (Unknown, Verified 07/20/23 11:49) jaime Johnathon's Syndrome clavulanic acid [Augmentin] Allergy (Unknown, Verified 07/20/23 11:49) Jaime Johnathon's Syndrome macrolides Allergy (Unknown, Uncoded 07/20/23 11:49) Jaime Johnathon's Syndrome zithramax Allergy (Unknown, Uncoded 07/20/23 11:49) Jaime Johnathon's Syndrome Medication List - Last Reconciled 07/20/23 by LINDA Forrest atorvastatin 20 mg PO BEDTIME 90 days celecoxib 200 mg PO BID 30 days cetirizine 10 mg PO DAILY PRN fluticasone propionate 50 mcg/actuation (Flonase Allergy Relief) 1 spray intranasal Q12H 30 days HPI HPI Comments 2 History of Present Illness0 Details Here today w/ concerns for STD new partner shortly after developed canker sore right upper gum went to 1 week ago. Given topical lidocaine. Did not start Since has developed some newer ulcers in the same area Would like to be tested and screened for all STD Does not have any other sx, including constitutional or PFSH Medical History (Updated 07/20/23 @ 11:54 by LINDA Forrest) No pertinent past medical history Surgical History (Updated 09/23/22 @ 08:45 by AGUSTIN Easley) No pertinent past surgical history Social History Housing: House Alcohol intake: current Alcohol intake frequency: holidays/special occasions only Alcohol type: beer Patient Tobacco Use Status: Never used Tobacco e-Cigarette/Vaping Use: Never Used Second Hand Smoke Exposure: No service: Yes Current occupational status: employed Current occupation: [employer] Current occupational exposures/hazards: No Cognitive needs: No Hearing needs: No Vision needs: No Review of Systems Const All systems reviewed & are unremarkable except as noted in HPI and below Physical Exam Const Other: awake alert NAD HEENT Throat image: 2 1. aphthous ulcer gingiva right upper does not look herpetic throat clear Assessment & Plan Assessment & Plan (1) Oral ulceration: Code(s): K12.1 - Other forms of stomatitis (2) Encounter for screening examination for sexually transmitted disease: Code(s): Z11.3 - Encounter for screening for infections with a predominantly sexual mode of transmission Plan . This note is constructed using voice recognition software. While every effort has been made to ensure accuracy in production scheduler, still errors may have been included Sometimes, these errors may affect the content or meaning of the given sentence . Total time spent caring for the patient today was 30 minutes. This includes time spent before the visit reviewing the chart, time spent during the visit, and time spent after the visit on documentation Orders: Orders 2 HIV Ab/Ag Today K12.1 - Other forms of stomatitis, Z11.3 - Encounter for screening for infections with a predominantly sexual mode of transmission Herpes Simplex Virus Ab IgG Today K12.1 - Other forms of stomatitis, Z11.3 - Encounter for screening for infections with a predominantly sexual mode of transmission CT NG by PCR Today K12.1 - Other forms of stomatitis, Z11.3 - Encounter for screening for infections with a predominantly sexual mode of transmission Syphilis Screen Today K12.1 - Other forms of stomatitis, Z11.3 - Encounter for screening for infections with a predominantly sexual mode of transmission Hepatitis B Surface Antigen Today K12.1 - Other forms of stomatitis, Z11.3 - Encounter for screening for infections with a predominantly sexual mode of transmission Hepatitis C Antibody Today K12.1 - Other forms of stomatitis, Z11.3 - Encounter for screening for infections with a predominantly sexual mode of transmission Medications: New 2 triamcinolone acetonide 0.1% use after food and/or drink and/or oral hygiene 1 appl dental TID 5 grams 0RF Patient Instructions: SCreening labs placed today They will be posted to the portal the area of concern today does not look like an STD, rather a canker sore Use the RX cream as directed. Use baking soda and h20 rinses and avoid acid, tobacco, hard brushing and other irritants to prevent recurrence. RTO as needed. Coding Level of Care Code Est Pt Level 4 (63310) Diagnoses Oral ulceration K12.1 Encounter for screening examination for sexually transmitted disease Z11.3
== END 2023-07-20 12:00 | disposition home or self-care (01) ==
PROVIDERS: PCP Family Medicine; Visit Provider Nurse Practitioner Family
DX: K12.1 Other forms of stomatitis (principal); Z11.3 Encounter for screening for infections with a predominantly sexual mode of transmission
CPT/HCPCS: 99214

== ENCOUNTER 2023-07-20 12:09 | Outpatient (REF) | payer OTHER, SELFPAY ==
[2023-07-21 08:15] LABS: HBsAGNum1 0.28 S/CO (0.00-0.99); HIV AB/AG Nonreactive (Nonreactive); HIV Num 1 0.21 S/CO (0.00-0.99); Hepatitis B Surface Antigen Negative (Negative); ~HepC Num1 0.11 S/CO (0.00-0.79); ~Hepatitis C Antibody Nonreactive (Nonreactive)
[2023-07-21 08:19] LABS: Syphilis Screen Nonreactive (Nonreactive)
[2023-07-22 03:57] LABS: Herpes Simplex Type 1 IgG <0.90 index; Herpes Simplex Type 2 IgG <0.90 index
== END 2023-07-20 12:10 | disposition home or self-care (01) ==
LOC: HO.WFDLDS 12:09
PROVIDERS: Visit Provider Nurse Practitioner Family
DX: Z11.3 Encounter for screening for infections with a predominantly sexual mode of transmission (principal); K12.1 Other forms of stomatitis
CPT/HCPCS: 36415; 86695; 86696; 86780; 86803; 87340; 87389

== ENCOUNTER 2024-10-29 14:30 | Outpatient (AMB) | payer OTHER, SELFPAY ==
--- NOTE | 2024-10-29 14:34 | MHC.PC.OV ---
Vital Signs 10/29/24 14:39 Height 5 ft 8 in Weight 239 lb 4 oz BMI 36.4 BP 106/68 Blood Pressure Location Rt brachial Position Sitting Respiration 14 Pulse 87 Pulse Source Pulse Oximeter Temp 98.7 F Temp Source Oral Pulse Oximetry (%) 97 Oxygen Delivery Method Room Air Intake Visit Reasons: f/u hyperlipidemia /Weakness/test step throat Intake Note: Follow up cholesterol. Experiencing fatigue everyday, started in June, even when getting 7-8 hours of sleep. Went to a walk in a couple months ago for strep throat, was trying to find out if he was a carry. Symptoms have resolved. High Value Associate Required: No Allergies amoxicillin (Augmentin) Allergy (Unknown, Verified 10/29/24 14:37) jaime Johnathon's Syndrome clavulanic acid (Augmentin) Allergy (Unknown, Verified 10/29/24 14:37) Jaime Johnathon's Syndrome macrolides Allergy (Unknown, Uncoded 10/29/24 14:37) Jaime Johnathon's Syndrome zithramax Allergy (Unknown, Uncoded 10/29/24 14:37) Jaime Johnathon's Syndrome Medication List - Last Reconciled 10/29/24 by Aldair Baca MD atorvastatin 20 mg PO BEDTIME 90 days celecoxib 200 mg PO BID 30 days cetirizine 10 mg PO DAILY PRN fluticasone propionate 50 mcg/actuation (Flonase Allergy Relief) 1 spray intranasal Q12H 30 days triamcinolone acetonide 0.1% 1 appl dental TID Tobacco use date assessed: 10/29/24 Dental Screening Dental Screen Date: 10/29/24 HPI f/u hyperlipidemia /Weakness/test step throat HPI Details 34 y/o male presents today with complaints of fatigue. Notes he has been significantly tired the past few months. He states he feels tired after lunch. He notes he gasps throughout the night and snores but does not remember much of it. No recent labs to review for his lipids. [facility] Medical History (Updated 10/29/24 @ 15:02 by Dane Cabrera) No pertinent past medical history Surgical History (Updated 09/23/22 @ 08:45 by AGUSTIN Easley) No pertinent past surgical history Social History Housing: House Alcohol intake: current Alcohol intake frequency: holidays/special occasions only Alcohol type: beer Patient Tobacco Use Status: Never used Tobacco e-Cigarette/Vaping Use: Never Used Second Hand Smoke Exposure: No service: Yes Current occupational status: employed Current occupation: [employer] Current occupational exposures/hazards: No Cognitive needs: No Hearing needs: No Vision needs: No Questionnaire PHQ-9 Over the last 2 weeks, how often have you been bothered by any of the following problems? 1. Little interest or pleasure in doing things: not at all 2. Feeling down, depressed, or hopeless: not at all 3. Trouble falling or staying asleep, or sleeping too much: not at all 4. Feeling tired or having little energy: not at all 5. Poor appetite or overeating: not at all 6. Feeling bad about yourself - or that you are a failure or have let yourself or your family down: not at all 7. Trouble concentrating on things, such as reading the newspaper or watching television: not at all 8. Moving or speaking so slowly that other people could have noticed. Or the opposite - being so fidgety or restless that you have been moving around a lot more than usual: not at all 9. Thoughts that you would be better off or of hurting yourself in some way: not at all Total score: 0 Source: Developed by Drs. Jerman Oliveira, Suze Armendariz, Emre Bullock and colleagues, with an educational lashawn from [employer]. Thrive Questionnaire Date Thrive assessed: 07/01/21 I am a: Patient What is your living situation today?: I choose not to answer this question Within the past 12 months, did the food you bought not last and you didn't have the money to get more?: I choose not to answer this question Within the past 12 months, did you worry whether your food would run out before you got money to buy more?: I choose not to answer this question Do you have trouble paying for medicines?: I choose not to answer this question Do you have trouble getting transportation to medical appointments?: I choose not to answer this question Do you have trouble paying your heating and electricity bill?: I choose not to answer this question Do you have trouble taking care of your child, family member or friend?: I choose not to answer this question Do you have trouble with day-to-day activities such as bathing, preparing meals, shopping, managing finances, etc.?: I choose not to answer this question Are you currently unemployed and looking for a job?: I choose not to answer this question Are you interested in more education?: I choose not to answer this question Please select the resources that you would like help with: None Currently or been in a relationship where the following occur: I choose not to answer THRIVE Score: 0 AUDIT C Alcohol Use Questionnaire (AUDIT-C) 1. How often do you have a drink containing alcohol?: 2-3 times a week (8 drinks max a week) 2. How many drinks containing alcohol do you have on a typical day when you are drinking?: 1 or 2 3. How often do you have six or more drinks on one occasion?: Never Total Score: 3 AMY-7 AMB Questionnaire AMY-7 Feeling nervous, anxious, or on edge: 0 = Not at all Not being able to stop or control worryin = Not at all Worrying too much about different things: 0 = Not at all Trouble relaxin = Not at all Being so restless that it is hard to sit still: 0 = Not at all Becoming easily annoyed or irritable: 0 = Not at all Feeling afraid as if something awful might happen: 0 = Not at all Total AMY-7 score (0-4 normal; 5-9 mild; 10-14 moderate; 15-21 severe): 0 Source: Developed by Drs. Jerman Oliveira, Suze Armendariz, Emre Bullock and colleagues, with an educational lashawn from [employer]. Review of Systems Const Denies chills, Reports fatigue, Denies fever(s), Denies headache(s) and Denies weakness ENT Denies dizziness and Denies headache(s) Card Denies dyspnea Resp Denies cough, Denies dyspnea, Denies wheezing and Denies other (shortness of breath) Musc Denies numbness and Denies tingling Neuro Denies dizziness, Denies headache(s), Denies numbness, Denies tingling and Denies weakness Psych Denies anxiety and Denies depression Endo Reports fatigue Aller/Immun Denies wheezing Physical exam (Primary Care) Vital Signs: Last Vital Signs Temp 98.7 F 10/29/24 14:39 Pulse 87 10/29/24 14:39 Resp 14 10/29/24 14:39 BP 106/68 10/29/24 14:39 Pulse Ox 97 10/29/24 14:39 Oxygen Delivery Method Room Air 10/29/24 14:39 BMI result Body Mass Index 36.4 Tobacco/Smoking Status: Tobacco use Status Tobacco use date assessed 10/29/24 10/29/24 14:43 Patient Tobacco Use Status Never used Tobacco 10/29/24 14:43 e-Cigarette/Vaping Use Never Used 10/29/24 14:43 PHQ-9: PHQ-9 Score PHQ-9: Total score 0 10/29/24 14:43 Thrive Assessment: Date of Thrive Assessment Date Thrive assessed 07/01/21 10/29/24 14:43 Currently or been in a relationship where the following occur: I choose not to answer Const General: well developed; No acute distress Nutritional Appearance: well nourished Orientation/consciousness: patient oriented x3 HENMT Head: Yes normocephalic and Yes atraumatic Eyes General: appearance normal, both eyes and all related structures Pupils: Equal, round and reactive pupils present EOM: EOMs intact bilaterally Resp Effort & Inspection: normal respiratory effort Auscultation: clear to auscultation bilaterally Cardio Rate: regular rate Rhythm: regular rhythm Heart sounds: S1 normal heart sound present, S2 normal heart sound present, no gallops, no murmurs and no rubs Neuro General: patient oriented x3 and gait normal Cranial nerves: Yes Equal, round and reactive pupils present Psych Affect: normal affect Coding Level of Care Code Est Pt Level 3 ([id number]) Diagnoses Hypersomnia G47.10 Throat discomfort R07.0 Assessment & Plan Assessment & Plan (1) Hypersomnia: Code(s): G47.10 - Hypersomnia, unspecified Category: Medical Plan: Significant snoring and gasping while sleeping. Unrestful sleep and weeks of tired in the morning. Daytime sleepiness Thick neck Referred to Sleep Medicine Check labs Will follow-up in a couple of months (2) Throat discomfort: Code(s): R07.0 - Pain in throat Category: Medical Plan: Throat appears normal Orders: Orders TSH reflex Free T4 Today Z00.00 - Encounter for general adult medical examination without abnormal findings UA CC w/rflx Micro + Cult Today Z00.00 - Encounter for general adult medical examination without abnormal findings HIV Ab/Ag Today Z11.3 - Encounter for screening for infections with a predominantly sexual mode of transmission Hepatitis B,C Profile Today Z11.3 - Encounter for screening for infections with a predominantly sexual mode of transmission Testosterone, Free/Total Today R53.83 - Other fatigue Complete Blood Count Auto Diff Today Z00.00 - Encounter for general adult medical examination without abnormal findings Comprehensive Gipsy. Panel Fast Today Z00.00 - Encounter for general adult medical examination without abnormal findings Lipid Panel Today Z00.00 - Encounter for general adult medical examination without abnormal findings Microalbumin, Random (w Creat) Today I10 - Essential (primary) hypertension Vitamin B12 and Folate Today E53.8 - Deficiency of other specified B group vitamins Vitamin D 25-OH Total Today E55.9 - Vitamin D deficiency, unspecified IRON PROFILE Today R53.83 - Other fatigue Monotest Today R53.83 - Other fatigue
[2024-10-29 14:39] VITALS: BP 106/68; PULSE 87; RESP 14; TEMP 37.1; O2SAT 97; BMI 36.4
== END 2024-10-29 15:02 | disposition home or self-care (01) ==
LOC: HO.HMCFM 14:31
PROVIDERS: PCP Family Medicine; Visit Provider Family Medicine
DX: G47.10 Hypersomnia, unspecified (principal); R07.0 Pain in throat

== ENCOUNTER → 2024-10-29 14:30 | Outpatient (BNVA) | payer OTHER, SELFPAY | PROVIDERS: PCP Family Medicine; Visit Provider Family Medicine | DX: R07.0 Pain in throat (principal); R53.83 Other fatigue; G47.10 Hypersomnia, unspecified; E53.8 Deficiency of other specified B group vitamins; E55.9 Vitamin D deficiency, unspecified | CPT/HCPCS: 96127; 99212 ==

== ENCOUNTER 2024-12-20 09:24 | Outpatient (REF) | payer OTHER, SELFPAY ==
--- OUTSIDE RECORDS SUMMARY | 2024-12-20 10:46 | XMS_ITS | Data Portability ---
Author Organization [facility], [address] Address [address] [place] [address] Assessment Encounter Date Assessment Date Assessment LastModified by Organization Details LastModified Time 01/13/2022 01/13/2022 R mid abdominal pain x 5-6 hours. No evidence of acute abdomen. Recommend liquid diet with progression to BRAT diet as tolerated, labs, phone follow up in the AM. ED precautions. Not available 01/13/2022 10:25:39 Plan of Treatment Reminders Order Date Submit Date Provider Last Modified By Organization Details Last Modified Time Details Appointments None recorded. Lab rapid strep group A, throat 2023 024 [email or web address] [facility] [address] [place], [address], 4 16:34:15 streptococc us group A, culture, throat 2023 024 LAURIE [facility] ([place]), [address] [place], [address], 4 06:08:15 CBC w/ auto diff 2021 022 [email or web address] [facility] ([place]), [address] [place] [address], [address], 2 10:52:03 CMP, serum or plasma 2021 [facility] [address] [place] [address], [address], 10:56:25 lipase, serum or plasma 2021 022 geronimo [facility] ([place]), [address], [place], [address], 10:56:45 Referral None recorded. Procedures None recorded. Surgeries None recorded. Imaging None recorded. Medication Orders None recorded. Patient TargetsNo targets recorded. Patient Instructions Encounter Date Encounter Id Patient Instructions Last Modified By Organization Details Last Modified Time 01/13/2022 [id number] abdominal pain: care instructions Not available 01/13/2022 10:23:12 Brat diet consists of: Bananas Rice Applesauce Fife. Use this diet for 24- 48 hours and advance if symptoms are improving. Abdominal pain can have a wide variety of causes. Although we currently do not believe your pain is related to appendicitis or other serious cause, we cannot totally exclude the possibility of your symptoms being due a serious underlying problem. Unless ALL of your symptoms have COMPLETELY resolved, you should follow up at the nearest Emergency Department in 6 hours to be rechecked. If your pain worsens, you should not hesitate to go to the Emergency Department to have your condition further evaluated. You should also follow up immediately if you develop any new symptoms which concern you, such as fever, nausea, vomiting, rectal bleeding, or any other symptom that concerns you. Failure to follow up as instructed above may result in serious adverse health consequences, including permanent disability or . Not available 01/13/2022 10:25:10 06/12/2023 [id number] Your sore throat is possible caused by a virus or by strep which wasn't picked up on the rapid. We are going to send the culture to the lab to confirm and you will be notified when results are available. You do not need antibiotics at this time, continue to treat your symptoms with fluids rest tylenol and ibuprofen. If your culture comes back positive you may need antibiotics at that time and they would be sent in to your pharmacy. Follow up with your PCP as needed. [email or web address] Not available 06/12/2023 16:34:14 Reason for Referral None Reported. Results Created Date Observation Date Name Description Value Unit Range Abnormal Flag Note LastModifiedBy Organization Detail LastModifiedTime 01/14/20 22 01/14/2022 CBC WITH DIFFE RENTI AL/PL ATELE T WBC 5.7 x10e3 /uL 3.4-10 .8 Not Available [facility] ([facility]) [address] [facility], [place], [address], 01/14/2022 12:06:15 01/14/20 22 01/14/2022 CBC WITH DIFFE RENTI AL/PL ATELE T RBC 5.15 x10e6 /uL 4.14-5 .80 Not Available [facility] ([facility]) [address] [facility] [address], [place], [address], 01/14/2022 12:06:15 01/14/20 22 01/14/2022 CBC WITH DIFFE RENTI AL/PL ATELE T hemoglobin 16.0 g/dL 13.0-1 7.7 Not Available [facility] ([facility]) [address] [facility] [address], [place], [address], 01/14/2022 12:06:15 01/14/20 22 01/14/2022 CBC WITH DIFFE RENTI AL/PL ATELE T hematocrit 46.1 % 37.5-5 1.0 Not Available [facility] ([facility]) [address] [facility] [address], [place], [address], 01/14/2022 12:06:15 01/14/20 22 01/14/2022 CBC WITH DIFFE RENTI AL/PL ATELE T MCV 90 fL 79-97 Not Available [facility] ([facility]) [address] [facility] [address], [place], [address], 01/14/2022 12:06:15 01/14/20 22 01/14/2022 CBC WITH DIFFE RENTI AL/PL ATELE T MCH 31.1 pg 26.6-3 3.0 Not Available [facility] ([facility]) [address] [place], [address], 01/14/2022 12:06:15 01/14/20 22 01/14/2022 CBC WITH DIFFE RENTI AL/PL ATELE T MCHC 34.7 g/dL 31.5-3 5.7 Not Available [facility] ([facility]) [address] [facility], [place], [address], 01/14/2022 12:06:15 01/14/20 22 01/14/2022 CBC WITH DIFFE RENTI AL/PL ATELE T RDW 12.3 % 11.6-1 5.4 Not Available [facility] ([facility]) [address] [facility], [place], [address], 01/14/2022 12:06:15 01/14/20 22 01/14/2022 CBC WITH DIFFE RENTI AL/PL ATELE T platelets 137 x10e3 /uL 150-45 0 below low normal Actua l plate let count may be somew hat highe r than repor urbano due to aggre gatio n of plate lets in this sampl e. Not Available [facility] ([facility]) [address] [facility], [place], [address], 01/14/2022 12:06:15 01/14/20 22 01/14/2022 CBC WITH DIFFE RENTI AL/PL ATELE T neutrophils 64 % not estab. Not Available [facility] ([facility]) [address] [place], [address], 01/14/2022 12:06:15 01/14/20 22 01/14/2022 CBC WITH DIFFE RENTI AL/PL ATELE T lymphs 23 % not estab. Not Available [facility] ([facility]) [address] [place], [address], 01/14/2022 12:06:15 01/14/20 22 01/14/2022 CBC WITH DIFFE RENTI AL/PL ATELE T monocytes 10 % not estab. Not Available [facility] ([facility]) [address] [facility], [place], [address], 01/14/2022 12:06:15 01/14/20 22 01/14/2022 CBC WITH DIFFE RENTI AL/PL ATELE T eos 2 % not estab. Not Available [facility] ([facility]) [address] [facility], [place], [address], 01/14/2022 12:06:15 01/14/20 22 01/14/2022 CBC WITH DIFFE RENTI AL/PL ATELE T basos 1 % not estab. Not Available [facility] ([facility]) [address] [facility] [address], [place], [address], 01/14/2022 12:06:15 01/14/20 22 01/14/2022 CBC WITH DIFFE RENTI AL/PL ATELE T immature cells VICE PRESIDENT OF ENGINEERING Not Available [facility] ([facility]) [address] [place], [address], 01/14/2022 12:06:15 01/14/20 22 01/14/2022 CBC WITH DIFFE RENTI AL/PL ATELE T neutrophils (absolute) 3.6 x10e3 /uL 1.4-7. 0 Not Available [facility] ([facility]) [address] [facility], [place], [address], 01/14/2022 12:06:15 01/14/20 22 01/14/2022 CBC WITH DIFFE RENTI AL/PL ATELE T lymphs (absolute) 1.3 x10e3 /uL 0.7-3. 1 Not Available [facility] ([facility]) [address] [place], [address], 01/14/2022 12:06:15 01/14/20 22 01/14/2022 CBC WITH DIFFE RENTI AL/PL ATELE T monocytes(ab solute) 0.6 x10e3 /uL 0.1-0. 9 Not Available [facility] ([facility]) [address] [facility], [place], [address], 01/14/2022 12:06:15 01/14/20 22 01/14/2022 CBC WITH DIFFE RENTI AL/PL ATELE T eos (absolute) 0.1 x10e3 /uL 0.0-0. 4 Not Available [facility] ([facility]) [address] [facility] [address], [place], [address], 01/14/2022 12:06:15 01/14/20 22 01/14/2022 CBC WITH DIFFE RENTI AL/PL ATELE T baso (absolute) 0.1 x10e3 /uL 0.0-0. 2 Not Available [facility] ([facility]) [address] [facility] [address], [place], [address], 01/14/2022 12:06:15 01/14/20 22 01/14/2022 CBC WITH DIFFE RENTI AL/PL ATELE T immature granulocytes 0 % not estab. Not Available [facility] ([facility]) [address] [facility], [place], [address], 01/14/2022 12:06:15 01/14/20 22 01/14/2022 CBC WITH DIFFE RENTI AL/PL ATELE T immature grans (abs) 0.0 x10e3 /uL 0.0-0. 1 Not Available [facility] ([facility]) [address] [facility], [place], [address], 01/14/2022 12:06:15 01/14/20 22 01/14/2022 CBC WITH DIFFE RENTI AL/PL ATELE T NRBC VICE PRESIDENT OF ENGINEERING Not Available [facility] ([facility]) [address] [facility], [place], [address], 01/14/2022 12:06:15 01/14/20 22 01/14/2022 CBC WITH DIFFE RENTI AL/PL ATELE T hematology comments: Note: Verif ied by micro wilmar bolton n. Not Available [facility] ([facility]) [address] [facility], [place], [address], 01/14/2022 12:06:15 01/14/20 22 01/14/2022 COMP. METAB OLIC PANEL (14) glucose 100 mg/dL 70-99 above high normal Not Available [facility] ([facility]) [address] [facility] [address], [place], [address], 01/14/2022 08:07:11 01/14/20 22 01/14/2022 COMP. METAB OLIC PANEL (14) BUN 18 mg/dL 6-20 Not Available [facility] ([facility]) [address] [facility] [address], [place], [address], 01/14/2022 08:07:11 01/14/20 22 01/14/2022 COMP. METAB OLIC PANEL (14) creatinine 0.99 mg/dL 0.76-1 .27 Not Available [facility] ([facility]) [address] [place], [address], 01/14/2022 08:07:11 01/14/20 22 01/14/2022 COMP. METAB OLIC PANEL (14) eGFR 106 mL/mi n/1.7 3 >59 Not Available [facility] ([facility]) [address] [place], [address], 01/14/2022 08:07:11 01/14/20 22 01/14/2022 COMP. METAB OLIC PANEL (14) BUN/creatini ne ratio 18 9-20 Not Available [facility] ([facility]) [address] [place], [address], 01/14/2022 08:07:11 01/14/20 22 01/14/2022 COMP. METAB OLIC PANEL (14) sodium 140 mmol/ L 134-14 4 Not Available [facility] ([facility]) [address] [place], [address], 01/14/2022 08:07:11 01/14/20 22 01/14/2022 COMP. METAB OLIC PANEL (14) potassium 4.6 mmol/ L 3.5-5. 2 Not Available [facility] ([facility]) [address] [place], [address], 01/14/2022 08:07:11 01/14/20 22 01/14/2022 COMP. METAB OLIC PANEL (14) chloride 103 mmol/ L 96-106 Not Available [facility] ([facility]) [address] [place], [address], 01/14/2022 08:07:11 01/14/20 22 01/14/2022 COMP. METAB OLIC PANEL (14) carbon dioxide, total 25 mmol/ L 20-29 Not Available [facility] ([facility]) [address] [place], [address], 01/14/2022 08:07:11 01/14/20 22 01/14/2022 COMP. METAB OLIC PANEL (14) calcium 9.6 mg/dL 8.7-10 .2 Not Available [facility] ([facility]) [address] [place], [address], 01/14/2022 08:07:11 01/14/20 22 01/14/2022 COMP. METAB OLIC PANEL (14) protein, total 7.0 g/dL 6.0-8. 5 Not Available [facility] ([facility]) [address] [place], [address], 01/14/2022 08:07:11 01/14/20 22 01/14/2022 COMP. METAB OLIC PANEL (14) albumin 4.9 g/dL 4.1-5. 2 Not Available [facility] ([facility]) [address] [place], [address], 01/14/2022 08:07:11 01/14/20 22 01/14/2022 COMP. METAB OLIC PANEL (14) globulin, total 2.1 g/dL 1.5-4. 5 Not Available [facility] ([facility]) [address] [place], [address], 01/14/2022 08:07:11 01/14/20 22 01/14/2022 COMP. METAB OLIC PANEL (14) A/G ratio 2.3 1.2-2. 2 above high normal Not Available [facility] ([facility]) [address] [place], [address], 01/14/2022 08:07:11 01/14/20 22 01/14/2022 COMP. METAB OLIC PANEL (14) bilirubin, total 0.9 mg/dL 0.0-1. 2 Not Available [facility] ([facility]) [address] [facility] [address], [place], [address], 01/14/2022 08:07:11 01/14/20 22 01/14/2022 COMP. METAB OLIC PANEL (14) alkaline phosphatase 50 IU/L 44-121 Not Available [facility] ([facility]) [address] [facility] [address], [place], [address], 01/14/2022 08:07:11 01/14/20 22 01/14/2022 COMP. METAB OLIC PANEL (14) AST (SGOT) 20 IU/L 0-40 Not Available [facility] ([facility]) [address] [facility] [place], [address], 01/14/2022 08:07:11 01/14/20 22 01/14/2022 COMP. METAB OLIC PANEL (14) ALT (SGPT) 24 IU/L 0-44 Not Available [facility] ([facility]) [address] [facility], [place], [address], 01/14/2022 08:07:11 01/14/20 22 01/14/2022 LIPAS E lipase 18 U/L 13-78 Not Available [facility] ([facility]) [address] [facility], [place], [address], 01/14/2022 08:07:12 06/12/19 24 06/16/2023 BETA STREP GP A CULTU RE beta strep gp A culture NEGATI VE Refer ence Range : Negat shahla Not Available [facility] ([facility]) [address] [facility], [place], [address], 06/16/2023 06:08:15 06/12/19 24 06/12/2023 rapid strep group A, throa t Unknown Analyte negati ve Not Available [id number] [place] [address] [facility] [address] [place] [address], [phone], 06/12/2023 16:10:14 06/12/19 24 06/12/2023 rapid strep group A, throa t Unknown Analyte negati ve Not Available [address] [place] [address] [facility] [address] [place] [address], [phone], 06/12/2023 16:10:14 06/12/19 24 06/12/2023 rapid strep group A, throa t Unknown Analyte yes Not Available [address] [place], [place] [address] [address] [place] [address], [phone], 06/12/2023 16:10:14 Result Notes None recorded. 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 Medical Equipment None Reported. Allergies Allergen ID Allergen Name Allergen Category Reaction Reaction Severity Criticality Documentation Date Start Date Code Code System Note Provider Name and Address Organization Details Recorded Time 77682 Product containin g penicilli n (product) medicatio n Not available Not available Not available 01/13/2022 17338 6277 SNOMED TALIB chaparro PA - [facility] 2 09:01:49 Medications Not known to be on any medication Vitals Date Recorded Body height Body mass index (BMI) Body weight Body temperature Respiratory rate Oxygen saturation Oxygen saturation in Arterial blood by Pulse oximetry Heart rate Systolic And Diastolic Provider Name and Address Organization Details Last Updated DateTime 4 170.18 cm 31.3 kg/m2 76673.4 7 g 98.7 [degF] 18 /min 98 % 98 % 76 /min 107/74 mm[Hg] Mariana Maricoy [place] - [facility] 4 16:12:05 Date Recorded Body height Body mass index (BMI) Body weight Pain severity - 0-10 verbal numeric rating [Score] - Reported Respiratory rate Heart rate Oxygen saturation Oxygen saturation in Arterial blood by Pulse oximetry Body temperature Systolic And Diastolic Provider Name and Address Organization Details Last Updated DateTime 2 170.18 cm 31.3 kg/m2 14126.4 7 g 4 20 /min 62 /min 98 % 98 % 98.5 [degF] 144/81 mm[Hg] TALIB YOUNG PA - [facility] 2 09:03:04 Social History Question Answer Notes LastModified by [employer] Details LastModified Time Tobacco Smoking Status Never Smoker TALIB chaparro [place] - [facility] 01/13/2022 09:02:39 Have You Had A Flu Shot This Season? No Information not available 06/12/2023 If No, Would You Like A Flu Shot Today? No Information not available 06/12/2023 Have You Had Direct Contact, Or Contact During Intimacy, With Monkeypox Rash, Scabs, Or Body Fluids From A Person With Monkeypox? No Information not available 06/12/2023 Have You Recently Traveled Abroad? No Information not available 01/13/2022 Sex: Unknown Functional Status Question Answer Note LastModified by [employer] Details LastModified Time Do you use any illicit or recreational drugs? No Information not available 01/13/2022 Do you or have you ever used any other forms of tobacco or nicotine? No Information not available 01/13/2022 What is your level of alcohol consumption? Occasional drank over the weekend Information not available 01/13/2022 Mental Status None recorded. Family History Relationship Description Onset Age of this Age Resolved Age Notes LastModified by Organization Details LastModified Time Father No current problems or disability Not available 01/13 09:02:18 Mother No current problems or disability Not available 01/13 09:02:18 Medical History No medical history recorded. Immunizations Vaccine Type Date Status Note Provider Nam e and Address Organization Details Recorded Time Influenza, split virus, quadrivalent, preservative 9 completed JUJU Fernandez [facility] 06/12/2023 16:06:33 COVID-19, mRNA, LNP-S, PF, 30 mcg/0.3 mL dose 1 completed [facility]U [facility] 06/12/2023 16:06:33 COVID-19, mRNA, LNP-S, PF, 30 mcg/0.3 mL dose 1 completed JUJU Fernandez [facility] 06/12/2023 16:06:33 Past Encounters Encounter ID Performer Location Encounter Start Date Encounter Closed Date Diagnosis/Indication Diagnosis SNOMED-CT Code Diagnosis ICD10 Code Diagnosis IMO Codes Diagnosis Note [id number] [address] [address] [address] 06/15/2019 18:59:41 06/15/2019 19:20:55 [id number] [place] [address] 09/20/2018 19:14:49 09/20/2018 19:54:39 [id number] [address] [place] [address] 12/05/2018 18:06:23 12/05/2018 19:01:40 [id number] [address] [place] [address] 05/03/2020 19:31:41 05/03/2020 19:56:38 [id number] Katherine Cardona DO [address] [address] [place] [address] 01/13/2022 08:55:23 01/13/2022 10:34:42 Abdominal pain 29028043 R10.9 [id number] JUJU Parsons [address] [address] [place] [address] 06/12/2023 15:54:47 06/12/2023 16:36:40 Acute pharyngitis 539311177 J02.9 Health Concerns Section Related Observation LastModified by Organization Detai ls LastModified Time None Recorded Concern Status LastModified by Organization Details LastModified Time None Recorded Advance Directives Directive None Recorded Payers Insurance Date Sequence Insurance Name Policy Number Policy Christianson Covered Member ID Christianson Member ID Guarantor Name 06/12/2023 1 [facility] () Alexander Pedro [id number] Alexander Pedro Notes Date Note Type Note Provider Name and Address Organization Details Recorded Time 2 text/html R mid abdominal pain x 4-5 days. Described as constant, stabbing, pain level 4/10. Denies preceding food choices. No pain meds attempted. Katherine Cardona, [address] [place], [address], [place] - [facility] 01/13/2022 11:09:54 4 text/html Sore throatReported by PatientSore ThroatFor associated symptoms, patient reportssore throatbut reportsno cough,no sputum production, andno shortness of breath. For source of patient information, patient reportsinformation obtained from patientandpatient arrived at urgent care ambulatory. For location, patient reportsthroat. For severity, patient reportsmild. For quality, patient reportsdullandhurts to swallow. For onset/timing, patient reports3 days. For context, patient reportsno sick contacts. JUJU Mike [address] [place], [address], [place] - [facility] 06/12/2023 16:34:32
[2024-12-20 11:51] LABS: Hematocrit 50.3 % (42.0-52.0); Hemoglobin 17.3 g/dl (14.0-18.0); Imm Gran Abs Auto 0.04 X10*3/uL (0.00-0.03); Imm Gran Pct Auto 0.6 % (0.0-0.4); Lymphocytes Absolute Auto 1.6 X10*3/uL (1.2-4.9); MANUAL DIFF FLAG SCAN; Mean Corpuscular HGB Conc 34.4 g/dl (31.0-36.0); Mean Corpuscular Hemoglobin 30.0 pg (27.0-33.0); Mean Corpuscular Volume 87.2 fL (80.0-98.0); NRBC Abs Auto 0.000 X10*3/uL (0.0-0.012); NRBC Pct Auto 0.0 /100WBC (0.0-0.2); PLT CLUMP 1; Red Blood Count 5.77 X10*6/uL (4.60-5.80); SCAN SMEAR FLAG 1
[2024-12-20 12:20] LABS: Alanine Aminotransferase 29 U/L (0-40); Albumin Level 4.2 g/dL (3.5-5.0); Alkaline Phosphatase 53 U/L (39-117); Anion Gap 9 (12-20); Aspartate Amino Transferase 30 U/L (5-37); Blood Urea Nitrogen 18 mg/dL (9-16); Calcium 9.3 mg/dL (8.4-10.2); Carbon Dioxide 29 mmol/L (22-29); Chloride 110 mmol/L (96-108); Cholesterol 202 mg/dL (<200); Estimated Glomerular Filt Rate > 60; HDL Cholesterol 35 mg/dL (>40); Iron 128 mcg/dL (45-160); Percent Iron Saturation 52 % (15-50); Potassium 4.0 mmol/L (3.3-5.1); Sodium 144 mmol/L (135-145); Total Iron Binding Capacity 247 mcg/dL (228-428); Total Protein 7.0 g/dL (6.5-8.0); Triglycerides 158 mg/dL (<150); Unsaturated Iron Binding 119 ug/dL
[2024-12-20 12:29] LABS: White Blood Count 7.1 X10*3/uL (4.8-10.8)
[2024-12-20 12:39] LABS: HBc Num1 0.09 S/CO (0.00-0.79); HBsAGNum1 0.37 S/CO (0.00-0.99); HIV Num 1 0.06 S/CO (0.00-0.99); Hepatitis B Surface Antigen Negative (Negative); ~HepC Num1 0.10 S/CO (0.00-0.79); ~Hepatitis B Surface Antibody REACTIVE (Nonreactive); ~Hepatitis C Antibody Nonreactive (Nonreactive)
[2024-12-20 12:44] LABS: Folate 7.8 ng/mL (> or = 4.0); Vitamin B12 730 pg/mL (200-900)
[2024-12-26 16:28] LABS: Testosterone, Free 157.4 pg/mL (35.0-155.0)
== END 2024-12-20 09:25 | disposition home or self-care (01) ==
LOC: HO.WFDLDS 09:24
PROVIDERS: Visit Provider Family Medicine
DX: Z00.00 Encounter for general adult medical examination without abnormal findings (principal); E53.8 Deficiency of other specified B group vitamins; R53.83 Other fatigue; E55.9 Vitamin D deficiency, unspecified; Z13.6 Encounter for screening for cardiovascular disorders; Z11.4 Encounter for screening for human immunodeficiency virus [HIV]; Z20.2 Contact with and (suspected) exposure to infections with a predominantly sexual mode of transmission
CPT/HCPCS: 36415; 80053; 80061; 82306; 82607; 82746; 83540; 84402; 84403; 84443; 85025; 86308; 86704; 86706; 86803; 87340; 87389

== ENCOUNTER 2024-12-21 18:19 | Outpatient (REF) | payer OTHER, SELFPAY ==
[2024-12-21 18:46] LABS: Microalbum/Creatinine Ratio Ur 3.2 ug/mg cr (<30)
[2024-12-21 18:47] LABS: Appearance Urine Clear; Glucose Urine UA Negative (Negative); PH 6.0 (5.0-9.0); Specific Gravity - Urine 1.015 (1.005-1.025)
== END 2024-12-21 18:20 | disposition home or self-care (01) ==
LOC: HO.LNP 18:19
PROVIDERS: Visit Provider Family Medicine
DX: Z00.00 Encounter for general adult medical examination without abnormal findings (principal); I10 Essential (primary) hypertension
CPT/HCPCS: 81003; 82043; 82570

== ENCOUNTER 2024-12-26 13:25 | Outpatient (AMB) | payer OTHER, SELFPAY ==
--- OUTSIDE RECORDS SUMMARY | 2024-12-26 11:40 | XMS_ITS | Encounter Summary ---
Author Organization [facility] Address [address] [place] [address] Phone Care Team Providers Care Magnetic Locater Name Role Phone Aldair Baca MD Primary Care Provider Encounter Details Date Type Department Care Team (Late st Contact Info) Description 12/26/2024 11:40 AM EST [facility] [address] [facility] [address] [place] [address] [phone] Jocelynn Garg NP [address] [facility] [address] [place], [place] [id number] [email or web address] U Male infertility (Primary Dx) Social History Tobacco Use Types Packs/Day Years Used Date Smoking Tobacco: Never Assessed Education Answer Date Recorded Are you interested in more education? Not on susana e 12/26/2023 Are you concerned about learning? Not on file 12/26/2023 No 12/26/2023 No 12/26/2023 Digital Access Answer Date Recorded No 12/26/2023 No 12/26/2023 Reliable internet access at home? Not on file 12/26/2023 Device with a working camera? Not on file Sex and Gender Information Value Date Recorded Sex Assigned at Not on file Legal Sex Male 2:48 PM EST Gender Identity Not on file Sexual Orientation Not on file documented as of this encounter Progress Notes * Jocelynn Garg NP - 12/26/2024 11:40 AM EST Urology Note Raghav Lombardo MD, FACS [address] [place] [address] Office # [phone] [email or web address] Name: Alexander Vasquez : 1990 Post-operative Visit S/p Microscopic epididymal sperm exploration and bilateral testicular sperm extraction (microTESE) on 12/11/24 Doing well since surgery No complaints Discomfort resolved No fever, chills, emesis, bleeding, discharge, swelling Rock Worker: patient declines PE: Appears well, comfortable, NAD Resp: non-labored Abdo: soft, nontender, nondistended Incision: clean, dry, intact Scrotum normal, no erythema Testes normal Epi normal Phallus: normal Meatus: normal Final Pathologic Diagnosis A. 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 NOTE: Incomplete spermatogenesis (without spermatozoon production) is seen in approximately 90% of the tubules. The remaining 10% contain involuting Sertoli cells. Leydig cells are decreased, and have lipofuscin granules. Overall the findings are etiologically nonspecific. B. 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 NOTE: Incomplete spermatogenesis (without spermatozoon production) is seen in approximately 90% of the tubules. The remaining 10% contain involuting Sertoli cells. Leydig cells are decreased, and have lipofuscin granules. Overall the findings are etiologically nonspecific. Assessment/Plan: Unfortunately no sperm seen on cryopreservation report Patient will continue Clomid with Dr. Darci Vides's office Couple to follow up with Dr. Nguyen to discuss next steps Doing well postoperatively F/u: shahrzad Garg NP and Raghav Lombardo MD [facility] [place] [facility], Aldair Delatorre MD documented in this encounter Plan of Treatment Not on file documented as of this encounter Visit Diagnoses Diagnosis Male infertility- Primary Unspecified male infertility documented in this encounter Care Teams Magnetic Locater Relationship Specialty Start Date End Date Aldair Baca MD PCP - General Family Medicine 12/20/23 documented as of this encounter Additional Source Comments The information contained in this document represents components of the legal health record. It is not the complete legal health record.[facility]
--- NOTE | 2024-12-26 13:19 | A.OFFPC_ITS ---
Intake Visit Reasons: bloodwork Visual Communications Instructor Required: No Allergies amoxicillin (Augmentin) Allergy (Unknown, Verified 12/26/24 15:58) jaime Johnathon's Syndrome clavulanic acid (Augmentin) Allergy (Unknown, Verified 12/26/24 15:58) Jaime Johnathon's Syndrome macrolides Allergy (Unknown, Uncoded 12/26/24 13:20) Jaime Johnathon's Syndrome zithramax Allergy (Unknown, Uncoded 12/26/24 13:20) Jaime Johnathon's Syndrome Medication List - Last Reconciled 12/26/24 by Valerie Tam, [facility]- atorvastatin 20 mg PO BEDTIME 90 days celecoxib 200 mg PO BID 30 days cetirizine 10 mg PO DAILY PRN fluticasone propionate 50 mcg/actuation (Flonase Allergy Relief) 1 spray intranasal Q12H 30 days triamcinolone acetonide 0.1% 1 appl dental TID Tobacco use date assessed: 12/26/24 Dental Screening Dental Screen Date: 12/26/24 Did you have a dental visit in the last 12 months?: Yes Did you have a dental problem in the last 6 months where you did not have access to dental care?: No Was dental information given to patient?: Patient has dentist HPI HPI Comments History of Present Illness Details 12/23/24 TC 202, TG 158, LDL 136, HDL 35 , otherwise wnl History of Present Illness The patient is a 34-year-old male presenting for a telehealth visit to follow up on lab results. Hyperlipidemia: - The patient was previously prescribed atorvastatin 20 mg for hyperlipidemia but never initiated the medication, opting instead for diet changes. - Lab results from December 23, 2024, owed a total cholesterol of 202 mg/dL, triglycerides 158 mg/dL, LDL 136 mg/dL, and HDL 35 mg/dL. - Compared to 2022, his total cholestero l improved from 225 mg/dL to 202 mg/dL and his LDL improved from 158 mg/dL to 136 mg/dL. - His HDL, however, decreased from 38 mg /dL in 2022 to 35 mg/dL. - The patient reports that over the last month and a half, he has been running 3.5 miles three times a week and was in a calorie deficit, resulting in a 4- pound weight loss, though his weight has been generally steady. - He underwent a micro-TESE procedure tw o weeks ago as part of the IVF process and has been sedentary since. Review of Systems - Constitutional: Reports weight has bee n steady, with a recent 4-pound loss over one month with diet and exercise. Results - Labs (12/23/2024): - Total Cholesterol: 202 mg/dL (previous ly 225 in 2022). - Triglycerides: 158 mg/dL. - LDL: 136 mg/dL (previously 158 in 2022 ). - HDL: 35 mg/dL (previously 38 in 2022). - Urinalysis: Normal. - Other labs were within normal limits. - Testosterone: Pending. Assessment and Plan 1. Hyperlipidemia - The patient's cholesterol profile has shown overall improvement with lifestyle changes, including a decrease in total cholesterol and LDL. The HDL has unexpectedly decreased despite his recent increase in exercise, though his sedentary state for the past two weeks post-procedure may be a contributing factor. The patient is encouraged for the improvement in his numbers. - Plan: - Continue current diet and exercise reg imen. - Consider consulting a fiber optics technician thr ough available work resources. - Repeat lipid panel in 6 months. An ord er has been placed and is active. - Office will arrange a follow-up appoin tment with his primary care provider, Dr. Baca, to review the new lab results. 2. Health Maintenance - The patient's testosterone level is pe nding. - Plan: - The pending testosterone results will be sent to the patient once they are available, which may take one to two weeks. Patient was given time to ask questions. All questions were answered to their satisfaction. Telehealth Attestation This visit was conducted via telehealth, and this note is believed to be an accurate representation of the encounter. The patient has been explained that this is an interactive (audio/video) telehealth encounter and what that consists of. The patient understands and wishes to proceed. [employer] platform was used. Total time spent caring for the patient today was 15 minutes. This includes time spent before the visit reviewing the chart, time spent during the visit, and time spent after the visit on documentation, reviewing laboratory results, diagnostic imaging, medications, performing a medically necessary evaluation, counseling on diagnoses, care coordination, ordering appropriate tests, ordering appropriate medications, review of tests performed by other providers, reporting test results with the patient, communication with other healthcare providers. [facility] Medical History (Updated 12/26/24 @ 16:10 by Valerie Tam [facility]) No pertinent past medical history Surgical History (Updated 09/23/22 @ 08:45 by AGUSTIN Easley) No pertinent past surgical history Social History Housing: House Alcohol intake: current Alcohol intake frequency: holidays/special occasions only Alcohol type: beer Patient Tobacco Use Status: Never used Tobacco e-Cigarette/Vaping Use: Never Used Second Hand Smoke Exposure: No service: Yes Current occupational status: employed Current occupation: [employer] Current occupational exposures/hazards: No Cognitive needs: No Hearing needs: No Vision needs: No Questionnaire Thrive Questionnaire Date Thrive assessed: 10/29/24 Physical exam (Primary Care) Tobacco/Smoking Status: Tobacco use Status Tobacco use date assessed 12/26/24 12/26/24 13:20 Patient Tobacco Use Status Never used Tobacco 12/26/24 13:20 e-Cigarette/Vaping Use Never Used 12/26/24 13:20 Thrive Assessment: Date of Thrive Assessment Date Thrive assessed 10/29/24 12/26/24 13:20 Telehealth Telehealth Telehealth Platform: [facility] Location of provider rendering services: practice address Location of patient: address on file Patient Identification confirmed using: Name, : Yes Telehealth method: voice only Patient verbally consented to treatment: Yes Patient verbally consented to billing insurance company: Yes Patient informed of any privacy concerns related to visit: Yes Coding Level of Care Code Tele Est Pt Level 2 (53242) Complex EM visit Add On G2211 Diagnoses Encounter to discuss test results Z71.2 Moderate mixed hyperlipidemia not requiring statin therapy E78.2 Hyperlipidemia type: moderate mixed hyperlipidemia not requiring statin therapy Low HDL (under 40) E78.6 Elevated fasting glucose R73.01 Assessment & Plan Assessment & Plan (1) Encounter to discuss test results: Code(s): Z71.2 - Person consulting for explanation of examination or test findings (2) Hyperlipidemia: Comment: To reduce low-density lipoprotein (LDL) cholesterol, you can try making lifestyle changes to your diet, exercise, and other habits: Eat a heart-healthy diet Limit saturated and trans fats, and eat more foods with healthy fats, like nuts, seeds, and unsaturated oils. You can also try eating more soluble fiber, which can help reduce the amount of cholesterol your body absorbs. Foods high in soluble fiber include whole grains, fruits, and legumes. Exercise regularly Aim for at least 150 minutes of exercise per week, such as walking, swimming, or cycling. Maintain a healthy weight Losing weight can help lower LDL cholesterol, especially if you are overweight or obese. Manage stress Chronic stress can raise LDL cholesterol, so try to find healthy ways to manage it. Quit smoking Smoking can raise cholesterol and increase the risk of serious health problems. Get enough sleep Aim for 7 to 9 hours of sleep per night. You should also limit foods with cholesterol, which are found in animal products like liver, egg yolks, and whole milk dairy products. Code(s): E78.5 - Hyperlipidemia, unspecified Category: Medical Qualifiers: Hyperlipidemia type: moderate mixed hyperlipidemia not requiring statin therapy Qualified Code(s): E78.2 - Mixed hyperlipidemia (3) Low HDL (under 40): Code(s): E78.6 - Lipoprotein deficiency Category: Medical (4) Elevated fasting glucose: Code(s): R73.01 - Impaired fasting glucose Category: Medical Plan . Orders: Orders Lipid Panel 6 Months E78.5 - Hyperlipidemia, unspecified, E78.6 - Lipoprotein deficiency, R73.01 - Impaired fasting glucose Hemoglobin A1c 6 Months R73.01 - Impaired fasting glucose Medications: Discontinued atorvastatin Discontinued Reason: Patient Completed Course 20 mg PO BEDTIME 90 days 90 tabs 2RF
--- OUTSIDE RECORDS SUMMARY | 2024-12-27 01:22 | XMS_ITS | Clinical Summary ---
Author Organization [facility] Address [address] [facility] [address] [place] [address] Phone Care Team Providers Care Fabrication Operator Name Role Phone Aldair Baca MD Primary Care Provider Allergies Active Allergy Reactions Criticality Noted Date Comments Amoxicillin-Pot Clavulanate 09/21/19 25 Azithromycin 09/20/2024 Medications clomiPHENE citrate (CLOMID) 50 mg tablet Take 0.5 tablets (25 mg total) by mouth daily. 30 tablet 2 5 Active oxyCODONE-acetam inophen (PERCOCET) 5-325 mg per tablet SELF PAY DO NOT SUBMIT TO INSURANCE. Take 1-2 tablets by mouth every 8 (eight) hours as needed for pain (specific location in comments) Partial fill ok 24 tablet 5 Active doxycycline monohydrate (MONODOX) 100 MG capsule Take 1 capsule (100 mg total) by mouth 2 (two) times a day for 5 days. 10 capsule 5 12/17/19 25 Encounters Date Type Department Care Team Description 12/26/2024 11:40 AM EST Office Visit [facility] 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 [address] [facility] [address] [place] [address] [place] 12/12/2024 Telephone [facility] [address] [facility] [address] [place] [address] Jocelynn Garg NP 12/11/2024 8:00 AM EST Procedure visit [facility] [address] [facility] [address] [place] [address] Raghav Lombardo MD Male infertility (Primary Dx) 10/30/2024 11:20 AM EDT Office Visit [facility] [address] [facility] [address] [facility] [address] Raghav Lombardo MD Male infertility (Primary Dx) from Last 3 Months Social History Tobacco Use Types Packs/Day Years [...] on file Sexual Orientation Not on file Plan of Treatment Health Maintenance Due Date Last Done Comments DEPRESSION SCREENING 2004 SMOKING Hx and SMOKELESS TOBACCO SCREENING 2005 HEPATITIS C SCREENING 2010 HIV ONE-TIME SCREENING (18-6 5 YEARS) 2010 INFLUENZA VACCINE (#1) 2024 12/08/2022 COVID-19 VACCINE (1 - 2024-2 6 season) 2024 Adult Td,Tdap Booster 04/20/2033 04/21/2023 , 07/19/2013 MENINGOCOCCAL VACCINES (ACWY) Aged Out 07/19/2013 No longer eligible based on patient's age to complete this topic HEPATITIS A VACCINES Aged Out 09/10/2013, 07/25/2013 No longer eligible based on patient's age to complete this topic HIB VACCINES Aged Out No longer eligi ble based on patient's age to complete this topic MENINGOCOCCAL VACCINES (B) Aged Out N o longer eligible based on patient's age to complete this topic PNEUMOCOCCAL VACCINES (0-49 years) Aged Out No longer eligible b ased on patient's age to complete this topic Medical Devices Not on file Procedures Procedure Name Priority Date/Time Associated Diagnosis Comments TISSUE EXAM Routine 12/11/2024 1:07 PM EST 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 TESTICLE BIOPSY, RIGHT: [...] granules. Overall the findings are etiologically nonspecific. 12/17/2024 10:43 AM [facility] at 1043 EST Clinical History Infertility. 12/17/2024 10:43 AM EST [facility] Gross Description A. TESTES; RIGHT TESTIS: Name: Alexander Vasquez; ; and : 1990 Collection/Order Information: Tissue - General ; Testes ; ''RIGHT TESTIS'' Specimen Label: matches the above (Confirmed by: Dixon Barker) The specimen is received in formalin and consists of a single 0.3 x 0.1 x 0.1 cm irregular lynne-pink soft tissue fragment which is submitted in toto in cassette A1. B. TESTES; LEFT TESTIS: Name: Alexander Vasquez; ; and : 1990 Collection/Order Information: Tissue - General ; Testes ; ''LEFT TESTIS'' Specimen Label: matches the above (Confirmed by: Dixon Barker) The specimen is received in formalin and consists of a single 0.4 x 0.2 x 0.1 cm irregular lynne-pink soft tissue fragment which is submitted in toto in cassette B1. 12/17/2024 10:43 AM [facility] Grossed By Dioxn Barker 12/17/2024 10:43 AM [facility] Result Priority Level Routine 12/17/2024 10:43 AM [facility] Disclaimer By their signature above, the pathologist listed as making the Final Diagnosis certifies that they have personally reviewed the case and confirmed the diagnosis. All slides and stains were of sufficient quality to establish the diagnosis, unless otherwise stated. Due to loss of elastic tension and/or tissue shrinkage in formalin, the clinical sizes of tissue specimens may be larger than those provided in this report. 12/17/2024 10:43 AM [facility] Tissue - General (Testes) 12/11/2024 1:07 PM EST 12/13/2024 12:49 PM EST Tissue - General (Testes) 12/11/2024 1:07 PM EST 12/13/2024 12:49 PM EST us Raghav Lombardo MD LAB PATHOLOGY ORDERABLES Fi nal Result Performing Organization Address City/State/[facility] Co de Phone Number [facility] [address] [place] [address] from Last 3 Months Insurance [facility] [place] [place] [address] [place] [address] [place] [address] [place] [facility] [place] [facility] Care Teams Fabrication Operator Relationship Specialty Start Date End Date Aldair Baca MD PCP - General Family Medicine 12/20/23 Additional Source Comments The information contained in this document represents components of the legal health record. It is not the complete legal health record.[facility]
--- OUTSIDE RECORDS SUMMARY | 2024-12-27 01:23 | XMS_ITS | Encounter Summary ---
Author Organization [facility] Address [address] [place] [address] Phone Care Team Providers Care Display Trimmer Name Role Phone Aldair Baca MD Primary Care Provider Encounter Details Date Type Department Care Team (Late st Contact Info) Description 12/13/2024 Lab Requisition [facility] Lab Main [address] [place], [place] [phone] Raghav Lombardo MD [address] [place] [address] [email or web address] Organic azoospermia Social History Tobacco Use Types Packs/Day Years [...] on file documented as of this encounter Plan of Treatment Not on file documented as of this encounter Procedures Procedure Name Priority Date/Time Associated Diagnosis Comments TISSUE EXAM Routine 12/11/2024 1:07 PM EST 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 12/17/2024 10:43 AM [facility] at 1043 EST Clinical History Infertility. 12/17/2024 10:43 AM [facility] Gross Description A. TESTES; RIGHT TESTIS: Name: [...] toto in cassette B1. 12/17/2024 10:43 AM [facility] Grossed By Dixon Barker 12/17/2024 10:43 AM [facility] Result Priority Level Routine 12/17/2024 10:43 AM [facility] Disclaimer By their signature above, the [...] provided in this report. 12/17/2024 10:43 AM [facility] Tissue - General (Testes) 12/11/2024 1:07 PM EST 12/13/2024 12:49 PM EST Tissue - General (Testes) 12/11/2024 1:07 PM EST 12/13/2024 12:49 PM EST us Raghav Lombardo MD LAB PATHOLOGY ORDERABLES Fi nal Result [facility] [address] [place] [address] documented in this encounter Visit Diagnoses Diagnosis Organic azoospermia documented in this encounter Care Teams Display Trimmer Relationship Specialty Start Date End Date Aldair Baca MD PCP - General Family Medicine 12/20/23 documented as of this encounter Additional Source Comments The information contained in this document represents components of the legal health record. It is not the complete legal health record.[facility]
--- OUTSIDE RECORDS SUMMARY | 2024-12-27 01:23 | XMS_ITS | Data Portability ---
Author Organization [facility], [address] Address [address] [place] [address] Assessment Encounter Date Assessment Date Assessment LastModified [...] strep group A, throat 2023 024 [email or web address] [address] [place], [address], 4 16:34:15 streptococc us group A, culture, throat 2023 024 LAURIE [facility] ([place]), [address] [place], [address], 4 06:08:15 CBC w/ auto diff 2021 022 [email or web address] [facility] ([place]), [address] [place] [address], [address], 2 10:52:03 CMP, serum or plasma 2021 0[facility] [address] [place] [address], [address], 10:56:25 lipase, serum or plasma 2021 022 geronimo [facility] ([place]), [address] [facility], [place], [address], 10:56:45 Referral None recorded. Procedures None recorded. Surgeries None recorded. Imaging None recorded. Medication Orders None recorded. Patient TargetsNo targets recorded. Patient Instructions Encounter Date Encounter Id Patient Instructions Last Modified By Organization Details Last Modified Time 01/13/2022 [id number] abdominal pain: care instructions Not available 01/13/2022 10:23:12 Brat diet consists of: Bananas Rice Applesauce [place]. Use this diet for 24- 48 hours [...] or . Not available 01/13/2022 10:25:10 06/12/2023 [id number] Your sore throat is possible caused by [...] x10e3 /uL 3.4-10 .8 Not Available [facility] ([facility]) [address] [facility], [place], [address], 01/14/2022 12:06:15 01/14/20 22 01/14/2022 CBC WITH DIFFE RENTI AL/PL ATELE T RBC 5.15 x10e6 /uL 4.14-5 .80 Not Available [facility] ([facility]) [address] [facility], [place], [address], 01/14/2022 12:06:15 01/14/20 22 01/14/2022 CBC WITH DIFFE RENTI AL/PL ATELE T hemoglobin 16.0 g/dL 13.0-1 7.7 Not Available [facility] ([facility]) [address] [facility], [place], [address], 01/14/2022 12:06:15 01/14/20 22 01/14/2022 CBC WITH DIFFE RENTI AL/PL ATELE T hematocrit 46.1 % 37.5-5 1.0 Not Available [facility] ([facility]) [address] [facility], [place], [address], 01/14/2022 12:06:15 01/14/20 22 01/14/2022 CBC WITH DIFFE RENTI AL/PL ATELE T MCV 90 fL 79-97 Not Available [facility] ([facility]) [address] [facility], [place], [address], 01/14/2022 12:06:15 01/14/20 22 01/14/2022 CBC WITH DIFFE RENTI AL/PL ATELE T MCH 31.1 pg 26.6-3 3.0 Not Available [facility] ([facility]) [address] [place], [address], 01/14/2022 12:06:15 01/14/20 22 01/14/2022 CBC WITH DIFFE RENTI AL/PL ATELE T MCHC 34.7 g/dL 31.5-3 5.7 Not Available [facility] ([facility]) [address] [facility], [place], [address], 01/14/2022 12:06:15 01/14/20 22 01/14/2022 CBC WITH DIFFE RENTI AL/PL ATELE T RDW 12.3 % 11.6-1 5.4 Not Available [facility] ([facility]) [address] [facility], [place], [address], 01/14/2022 12:06:15 01/14/20 22 01/14/2022 CBC WITH DIFFE RENTI AL/PL ATELE T platelets 137 x10e3 /uL 150-45 0 below low normal Actua l plate let count may be somew hat highe r than repor urbano due to aggre gatio n of plate lets in this sampl e. Not Available [facility] ([facility]) [address] [facility], [place], [address], 01/14/2022 12:06:15 01/14/20 22 01/14/2022 CBC WITH DIFFE RENTI AL/PL ATELE T neutrophils 64 % not estab. Not Available [facility] ([facility]) [address] [place], [address], 01/14/2022 12:06:15 01/14/20 22 01/14/2022 CBC WITH DIFFE RENTI AL/PL ATELE T lymphs 23 % not estab. Not Available [facility] ([facility]) [address] [place], [address], 01/14/2022 12:06:15 01/14/20 22 01/14/2022 CBC WITH DIFFE RENTI AL/PL ATELE T monocytes 10 % not estab. Not Available [facility] ([facility]) [address] [facility], [place], [address], 01/14/2022 12:06:15 01/14/20 22 01/14/2022 CBC WITH DIFFE RENTI AL/PL ATELE T eos 2 % not estab. Not Available [facility] ([facility]) [address] [facility], [place], [address], 01/14/2022 12:06:15 01/14/20 22 01/14/2022 CBC WITH DIFFE RENTI AL/PL ATELE T basos 1 % not estab. Not Available [facility] ([facility]) [address] [facility], [place], [address], 01/14/2022 12:06:15 01/14/20 22 01/14/2022 CBC WITH DIFFE RENTI AL/PL ATELE T immature cells ROLL THREADER OPERATOR Not Available [facility] ([facility]) [address] [place], [address], 01/14/2022 12:06:15 01/14/20 22 01/14/2022 CBC WITH DIFFE RENTI AL/PL ATELE T neutrophils (absolute) 3.6 x10e3 /uL 1.4-7. 0 Not Available [facility] ([facility]) [address] [facility], [place], [address], 01/14/2022 12:06:15 01/14/20 22 01/14/2022 CBC WITH DIFFE RENTI AL/PL ATELE T lymphs (absolute) 1.3 x10e3 /uL 0.7-3. 1 Not Available [facility] ([facility]) [address] [place], [address], 01/14/2022 12:06:15 01/14/20 22 01/14/2022 CBC WITH DIFFE RENTI AL/PL ATELE T monocytes(ab solute) 0.6 x10e3 /uL 0.1-0. 9 Not Available [facility] ([facility]) [address] [facility], [place], [address], 01/14/2022 12:06:15 01/14/20 22 01/14/2022 CBC WITH DIFFE RENTI AL/PL ATELE T eos (absolute) 0.1 x10e3 /uL 0.0-0. 4 Not Available [facility] ([facility]) [address] [facility], [place], [address], 01/14/2022 12:06:15 01/14/20 22 01/14/2022 CBC WITH DIFFE RENTI AL/PL ATELE T baso (absolute) 0.1 x10e3 /uL 0.0-0. 2 Not Available [facility] ([facility]) [address] [facility], [place], [address], 01/14/2022 12:06:15 01/14/20 22 01/14/2022 CBC WITH DIFFE RENTI AL/PL ATELE T immature granulocytes 0 % not estab. Not Available [facility] ([facility]) [address] [facility], [place], [address], 01/14/2022 12:06:15 01/14/20 22 01/14/2022 CBC WITH DIFFE RENTI AL/PL ATELE T immature grans (abs) 0.0 x10e3 /uL 0.0-0. 1 Not Available [facility] ([facility]) [address] [facility], [place], [address], 01/14/2022 12:06:15 01/14/20 22 01/14/2022 CBC WITH DIFFE RENTI AL/PL ATELE T NRBC ROLL THREADER OPERATOR Not Available [facility] ([facility]) [address] [facility], [place], [address], 01/14/2022 12:06:15 01/14/20 22 01/14/2022 CBC WITH DIFFE RENTI AL/PL ATELE T hematology comments: Note: Verif ied by micro wilmar bolton n. Not Available [facility] ([facility]) [address] [facility], [place], [address], 01/14/2022 12:06:15 01/14/20 22 01/14/2022 COMP. METAB OLIC PANEL (14) glucose 100 mg/dL 70-99 above high normal Not Available [facility] ([facility]) [address] [facility], [place], [address], 01/14/2022 08:07:11 01/14/20 22 01/14/2022 COMP. METAB OLIC PANEL (14) BUN 18 mg/dL 6-20 Not Available [facility] ([facility]) [address] [facility], [place], [address], 01/14/2022 08:07:11 01/14/20 22 01/14/2022 COMP. METAB OLIC PANEL (14) creatinine 0.99 mg/dL 0.76-1 .27 Not Available [facility] ([facility]) [address] [place], [address], 01/14/2022 08:07:11 01/14/20 22 01/14/2022 COMP. METAB OLIC PANEL (14) eGFR 106 mL/mi n/1.7 3 >59 Not Available [facility] ([facility]) [address] [place], [address], 01/14/2022 08:07:11 01/14/20 22 01/14/2022 COMP. METAB OLIC PANEL (14) BUN/creatini ne ratio 18 9-20 Not Available [facility] ([facility]) [address] [place], [address], 01/14/2022 08:07:11 01/14/20 22 01/14/2022 COMP. METAB OLIC PANEL (14) sodium 140 mmol/ L 134-14 4 Not Available [facility] ([facility]) [address] [place], [address], 01/14/2022 08:07:11 01/14/20 22 01/14/2022 COMP. METAB OLIC PANEL (14) potassium 4.6 mmol/ L 3.5-5. 2 Not Available [facility] ([facility]) [address] [place], [address], 01/14/2022 08:07:11 01/14/20 22 01/14/2022 COMP. METAB OLIC PANEL (14) chloride 103 mmol/ L 96-106 Not Available [facility] ([facility]) [address] [place], [address], 01/14/2022 08:07:11 01/14/20 22 01/14/2022 COMP. METAB OLIC PANEL (14) carbon dioxide, total 25 mmol/ L 20-29 Not Available [facility] ([facility]) [address] [place], [address], 01/14/2022 08:07:11 01/14/20 22 01/14/2022 COMP. METAB OLIC PANEL (14) calcium 9.6 mg/dL 8.7-10 .2 Not Available [facility] ([facility]) [address] [place], [address], 01/14/2022 08:07:11 01/14/20 22 01/14/2022 COMP. METAB OLIC PANEL (14) protein, total 7.0 g/dL 6.0-8. 5 Not Available [facility] ([facility]) [address] [place], [address], 01/14/2022 08:07:11 01/14/20 22 01/14/2022 COMP. METAB OLIC PANEL (14) albumin 4.9 g/dL 4.1-5. 2 Not Available [facility] ([facility]) [address] [place], [address], 01/14/2022 08:07:11 01/14/20 22 01/14/2022 COMP. METAB OLIC PANEL (14) globulin, total 2.1 g/dL 1.5-4. 5 Not Available [facility] ([facility]) [address] [place], [address], 01/14/2022 08:07:11 01/14/20 22 01/14/2022 COMP. METAB OLIC PANEL (14) A/G ratio 2.3 1.2-2. 2 above high normal Not Available [facility] ([facility]) [address] [place], [address], 01/14/2022 08:07:11 01/14/20 22 01/14/2022 COMP. METAB OLIC PANEL (14) bilirubin, total 0.9 mg/dL 0.0-1. 2 Not Available [facility] ([facility]) [address] [facility], [place], [address], 01/14/2022 08:07:11 01/14/20 22 01/14/2022 COMP. METAB OLIC PANEL (14) alkaline phosphatase 50 IU/L 44-121 Not Available [facility] ([facility]) [address] [facility], [place], [address], 01/14/2022 08:07:11 01/14/20 22 01/14/2022 COMP. METAB OLIC PANEL (14) AST (SGOT) 20 IU/L 0-40 Not Available [facility] ([facility]) [address] [facility] [place], [address], 01/14/2022 08:07:11 01/14/20 22 01/14/2022 COMP. METAB OLIC PANEL (14) ALT (SGPT) 24 IU/L 0-44 Not Available [facility] ([facility]) [address] [facility], [place], [address], 01/14/2022 08:07:11 01/14/20 22 01/14/2022 LIPAS E lipase 18 U/L 13-78 Not Available [facility] ([facility]) [address] [facility], [place], [address], 01/14/2022 08:07:12 06/12/19 24 06/16/2023 BETA STREP GP A CULTU RE beta strep gp A culture NEGATI VE Refer ence Range : Negat shahla Not Available [facility] ([facility]) [address] [facility], [place], [address], 06/16/2023 06:08:15 06/12/19 24 06/12/2023 rapid strep group A, throa t Unknown Analyte negati ve Not Available [address] [place] [address] [facility] [facility] [address] [place] [address], [phone], 06/12/2023 16:10:14 06/12/19 24 06/12/2023 rapid strep group A, throa t Unknown Analyte negati ve Not Available [address] [place] [address] [facility] [address] [place] [address], [address], 06/12/2023 16:10:14 06/12/19 24 06/12/2023 rapid strep group A, throa t Unknown Analyte yes Not Available [address] [place], [place] [address] [address] [place] [address], [address], 06/12/2023 16:10:14 Result Notes None recorded. 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 Medical Equipment None Reported. Allergies Allergen ID Allergen Name Allergen Category Reaction Reaction Severity Criticality Documentation Date Start Date Code Code System Note Provider Name and Address Organization Details Recorded Time 36937 Product containin g penicilli n (product) medicatio n Not available Not available Not available 01/13/2022 [id number] [id number] SNOMED TALIB chaparro [place] - [facility] 2 09:01:49 Medications Not known to be on any medication Vitals Date Recorded Body height Body mass index (BMI) Body weight Body temperature Respiratory rate Oxygen saturation Oxygen saturation in Arterial blood by Pulse oximetry Heart rate Systolic And Diastolic Provider Name and Address Organization Details Last Updated DateTime 4 170.18 cm 31.3 kg/m2 12722.4 7 g 98.7 [degF] 18 /min 98 % 98 % 76 /min 107/74 mm[Hg] Mariana Maricoy [place] - [facility] 4 16:12:05 Date Recorded Body height Body mass index (BMI) Body weight Pain severity - 0-10 verbal numeric rating [Score] - Reported Respiratory rate Heart rate Oxygen saturation Oxygen saturation in Arterial blood by Pulse oximetry Body temperature Systolic And Diastolic Provider Name and Address Organization Details Last Updated DateTime 2 170.18 cm 31.3 kg/m2 05620.4 7 g 4 20 /min 62 /min 98 % 98 % 98.5 [degF] 144/81 mm[Hg] TALIB YOUNG [place] - [facility] 2 09:03:04 Social History Question Answer Notes LastModified by [employer] Details LastModified Time Tobacco Smoking Status Never [...] Functional Status Question Answer Note LastModified by [employer] Details LastModified Time Do you use any [...] PF, 30 mcg/0.3 mL dose 1 completed UJJU Fernandez [facility] 06/12/2023 16:06:33 COVID-19, mRNA, LNP-S, PF, 30 mcg/0.3 mL dose 1 completed JUJU Fernandez [facility] 06/12/2023 16:06:33 Past Encounters Encounter ID Performer Location Encounter Start Date Encounter Closed Date Diagnosis/Indication Diagnosis SNOMED-CT Code Diagnosis ICD10 Code Diagnosis IMO Codes Diagnosis Note [id number] [address] [address] [address] 06/15/2019 18:59:41 06/15/2019 19:20:55 [id number] [address] [place] [address] 09/20/2018 19:14:49 09/20/2018 19:54:39 [id number] [address] [place] [address] 12/05/2018 18:06:23 12/05/2018 19:01:40 [id number] [address] [place] [address] 05/03/2020 19:31:41 05/03/2020 19:56:38 [id number] [place] [facility] [address] [address] [place] [address] 01/13/2022 08:55:23 01/13/2022 10:34:42 Abdominal pain 07369365 R10.9 [id number] [facility]U [facility] [address] [address] [address] [place] [address] 06/12/2023 15:54:47 06/12/2023 16:36:40 Acute pharyngitis 075096668 J02.9 Health Concerns Section Related Observation LastModified by Organization Detai ls LastModified Time None Recorded Concern Status LastModified by Organization Details LastModified Time None Recorded Advance Directives Directive None Recorded Payers Insurance Date Sequence Insurance Name Policy Number Policy Christianson Covered Member ID Christianson Member ID Guarantor Name 06/12/2023 1 [facility] () Alexander Pedro [id number] Alexander Pedro Notes Date Note Type Note Provider Name and Address Organization Details Recorded Time 2 text/html R mid abdominal pain x 4-5 days. Described as constant, stabbing, pain level 4/10. Denies preceding food choices. No pain meds attempted. Katherine Cardona, [address] [place], [address], [place] - [facility] 01/13/2022 11:09:54 4 [...] JUJU Mike [address] [place], [address], [place] - [facility] 06/12/2023 16:34:32
== END 2024-12-26 16:08 | disposition home or self-care (01) ==
LOC: HO.HMCFM 13:25
PROVIDERS: PCP Family Medicine; Visit Provider Nurse Practitioner Family
DX: E78.2 Mixed hyperlipidemia (principal); E78.6 Lipoprotein deficiency; R73.01 Impaired fasting glucose; Z71.2 Person consulting for explanation of examination or test findings

== ENCOUNTER 2025-02-01 08:32 | Outpatient (AMB) | payer OTHER, SELFPAY ==
--- NOTE | 2025-02-01 08:31 | MHC.OFFVIS ---
Vital Signs 02/01/25 08:32 Height 5 ft 8 in Weight 211 lb 6 oz BMI 32.1 BP 110/68 Blood Pressure Location Rt brachial Position Sitting Pulse 62 Pulse Source Pulse Oximeter Pulse Oximetry (%) 97 Oxygen Delivery Method Room Air Intake Visit Reasons: INP-Hypersomnia, unspecified Intake Note: Patient presents ROUTE DELIVERY CLERK Hypersomnia. Significant snoring and gasping while sleeping. Unrestful sleep and weeks of tired in the morning. Daytime sleepiness Flight Inspector Required: No Accompanied by: Self / Same As Patient Allergies amoxicillin (Augmentin) Allergy (Unknown, Verified 02/01/25 08:32) jaime Johnathon's Syndrome clavulanic acid (Augmentin) Allergy (Unknown, Verified 02/01/25 08:32) Jaime Johnathon's Syndrome macrolides Allergy (Unknown, Uncoded 12/26/24 13:20) Jaime Johnathon's Syndrome zithramax Allergy (Unknown, Uncoded 12/26/24 13:20) Jaime Johnathon's Syndrome HPI Comments Details: 34 year male is referred to us for an evaluation of MAHI per his pcp. He has been in the [employer] for 12 years and works M-F day shifts in civil engineering. For the past two years, despite having 8 hours of sleep, he crashes at mid-day, denies napping. He Lost his 36 year old brother in 2018, and in 2019 lost his younger brother 24 years of age. He goes to bed by 9pm and wakes up 5:30am, snores loudly, gasps for air, no bathroom breaks. He moves around a lot in his sleep, denies parasomnias. He wakes with morning headaches 2-3x per week, lasting for 1 hour and takes ibuprofen. He denies bruxism and clenching of the jaw, and acid reflux. Denies RLS symptoms of paresthesias, has spasms with cramps in his feet bilaterally in the arches of his feet and calves. He massages his calves and feet this helps. He has lower back pain radiating, sharp pain, l. side worse than r. lasting few minutes, and ibuprofen usually helps. Memory is foggy, he is very forgetful. Mood fluctuates based on his quality of sleep, stressors of life, and demands of work. Diet is stable, and eats a low carbs. He works out 3x a week, runs 10min and does resistance exercises. Denies smoking, MJ, edibles and drinks alcohol socially. Denies FH of stroke, htn, and seizures. [facility] Medical History No pertinent past medical history Surgical History No pertinent past surgical history Social History Housing: House Alcohol intake: current Alcohol intake frequency: holidays/special occasions only Alcohol type: beer Patient Tobacco Use Status: Never used Tobacco e-Cigarette/Vaping Use: Never Used Second Hand Smoke Exposure: No service: Yes Current occupational status: employed Current occupation: [employer] Current occupational exposures/hazards: No Cognitive needs: No Hearing needs: No Vision needs: No Physical Exam Vital Signs: Last Vital Signs Pulse 62 02/01/25 08:32 BP 110/68 02/01/25 08:32 Pulse Ox 97 02/01/25 08:32 Oxygen Delivery Method Room Air 02/01/25 08:32 BMI result Body Mass Index 32.1 Const General: cooperative, comfortable and no acute distress Nutritional Appearance: average body habitus Orientation/consciousness: patient oriented x3 HEENT Face and sinus: Yes face symmetric Teeth and gingiva: other (mallampti score is 4) Eyes Pupils: Equal, round and reactive pupils present Neck Neck: Yes full ROM Resp Effort & Inspection: normal respiratory effort and able to speak in complete sentences Neuro General: patient oriented x3 and moves all extremities Cranial nerves: Yes Equal, round and reactive pupils present, Yes Normal accommodation reflex present, Yes Ability to bilaterally rotate head present and Yes Ability to bilaterally elevate shoulders present Cognition (Neuro): normal cognition Gait exam (Neuro): Normal gait present Motor exam (neuro): 5/5 motor strength present throughout and Normal motor muscle tone present throughout Deep tendon reflexes (DTR's): Right triceps reflex intensity grade: 2+, Left triceps reflex intensity grade: 2+, Rt Biceps (C5, C6): 2+, Left biceps reflex intensity grade: 2+, Right brachioradialis reflex intensity grade: 2+, Left brachioradialis reflex intensity grade: 2+, Right patellar reflex intensity grade: 2+ and Left patellar reflex intensity grade: 2+ Psych Appearance: grossly normal Speech and movement: Normal speech and movement present Thought process: Normal thought process present Thought content: Normal thought content present Results Reviewed Results Reviewed: MR/MR lumbar spine wo con IMPRESSION: unremarkable imaging. Labs review with pt. Assessment & Plan Assessment & Plan (1) Excessive daytime sleepiness: Code(s): G47.19 - Other hypersomnia Category: Medical (2) Loud snoring: Code(s): R06.83 - Snoring Category: Medical Plan Excessive daytime sleepiness, snoring, HST r/o MAHI Labs reviewed with pt are normal. Cramps Magnesium 200mg to 400mg po daily. f/u in 3 months Orders: Orders RT home sleep study Today G47.19 - Other hypersomnia Medications: New magnesium oxide 400 mg PO DAILY 90 tabs 0RF 3 months Patient Instructions: Please complete the following fasting labs to rule out deficiencies. CBC/CMP/ B12/ Vit D/ TSH/ Homocysteine and MMA/ Ferritin. Sleep Hygiene provided: set a scheduled bedtime and wake time to help regulate the circadian rhythm and balance the release of pituitary hormones. Sleep in a dark room, temperatures below 68 degrees, and no devices n bed. Limit caffeinated products 6 hours prior to bed, and limit fluids 2-4 hours prior to bed. Gentle night yoga, diffusing essential oils, and playing soft music can be relaxing. Coding Level of Care Code New Pt Level 4 (29300) Diagnoses Excessive daytime sleepiness G47.19 Loud snoring R06.83 Sleep Questionnaire Difficulty falling asleep: No Difficulty staying asleep?: No Number of arousals: 1 Snoring: Yes Witnessed apneas: Yes Gasping arousals: Yes Nocturia: No GERD: No Vivid dreams: Yes Acting out dreams: No Abnormal behavior in sleep: No Abnormal movements in sleep: No Morning headaches: No Excessive daytime sleepiness: Yes Daytime naps: No Restless legs: No Hallucinations: No Sleep paralysis: No Drop attacks: No Sleep Study: No CPAP: No
[2025-02-01 08:32] VITALS: BP 110/68; PULSE 62; O2SAT 97; BMI 32.1
--- OUTSIDE RECORDS SUMMARY | 2025-02-01 08:34 | XMS_ITS | Clinical Summary ---
Author Organization [facility] Address [address] [address] Phone Care Team Providers Care Gantry Rigger Name Role Phone Aldair Baca MD Primary Care Provider Allergies Active Allergy Reactions Criticality Noted Date Comments Amoxicillin-Pot Clavulanate 09/21/19 25 Azithromycin 09/20/2024 Medications clomiPHENE citrate (CLOMID) 50 mg tablet Take 0.5 tablets (25 mg total) by mouth daily. 30 tablet 2 07/04/2024 Active oxyCODONE-aceta minophen (PERCOCET) 5-325 mg per tablet SELF PAY DO NOT SUBMIT TO INSURANCE. Take 1-2 tablets by mouth every 8 (eight) hours as needed for pain (specific location in comments) Partial fill ok 24 tablet 12/11/2024 Active Encounters Date Type Department Care Team Description 01/23/2025 3:50 PM EST Telemedicine [facility] [address] [address] Emiliano Jean MD Male infertility (Primary Dx); Hypogonadism in male 12/26/2024 11:40 AM EST Office Visit [facility] 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 65 [facility] [address] [place] [address] [place] 12/12/2024 Telephone [facility] 65 [facility] [address] [place] [address] Jocelynn Garg NP 12/11/2024 8:00 AM EST Procedure visit [facility] 65 [facility] [address] [place] [address] Raghav Lombardo MD Male infertility (Primary Dx) [...] Orientation Not on file Plan of Treatment Upcoming Encounters Date Type Department Care Team ([facility] Contact Info) Description 02/26/2025 3:00 PM EST Office Visit [facility] [address] [place] [address], [facility] [address] [place] [address] Darci Vides MD [address] [place] [phone] [email or web address] Health Maintenance Due Date Last Done Comments DEPRESSION SCREENING 2004 SMOKING Hx and SMOKELESS TOBACCO SCREENING 2005 HEPATITIS C SCREENING 2010 HIV ONE-TIME SCREENING (18-6 5 YEARS) 2010 INFLUENZA VACCINE (#1) 2024 12/08/2022 COVID-19 VACCINE (2024-2 6 season) 2024 Adult Td,Tdap Booster 04/20/2033 [...] findings are etiologically nonspecific. 12/17/2024 10:43 AM EST [facility] at 1043 EST Clinical History Infertility. 12/17/2024 10:43 AM EST [facility] Gross Description A. TESTES; RIGHT TESTIS: Name: [...] toto in cassette B1. 12/17/2024 10:43 AM [facility] Grossed By Dixon Barker 12/17/2024 10:43 AM [facility] Result Priority Level Routine 12/17/2024 10:43 AM [facility] Disclaimer By their signature above, the [...] provided in this report. 12/17/2024 10:43 AM [facility] Tissue - General (Testes) 12/11/2024 1:07 PM EST 12/13/2024 12:49 PM EST Tissue - General (Testes) 12/11/2024 1:07 PM EST 12/13/2024 12:49 PM EST us Raghav Lombardo MD LAB PATHOLOGY ORDERABLES Fi nal Result [facility] [address] [place] [address] from Last 3 Months Insurance [facility] [place] [address] [place] [address] [place] [address] [facility] Care Teams Gantry Rigger Relationship Specialty Start Date End Date Aldair Baca MD PCP - General Family Medicine 12/20/23 Additional Source Comments The information contained in this document represents components of the legal health record. It is not the complete legal health record.[facility]
--- OUTSIDE RECORDS SUMMARY | 2025-02-01 08:35 | XMS_ITS | Data Portability ---
Author Organization [facility], [address] Address [address] [place] [address] Assessment Encounter Date Assessment Date Assessment LastModified [...] strep group A, throat 2023 024 [email or web address] [address] [place], [address], 4 16:34:15 streptococc us group A, culture, throat 2023 024 LAURIE [facility] ([facility]), [address] [place], [address], 4 06:08:15 CBC w/ auto diff 2021 022 [email or web address] [facility] ([facility]), [address] [place] [address], [address], 2 10:52:03 CMP, serum or plasma 2021 022 [facility] [address] [place] [address], [address], 10:56:25 lipase, serum or plasma 2021 022 geronimo [facility] ([facility]), [address] [facility], [place], [address], 10:56:45 Referral None recorded. Procedures None recorded. Surgeries None recorded. Imaging None recorded. Medication Orders None recorded. Patient TargetsNo targets recorded. Patient Instructions Encounter Date Encounter Id Patient Instructions Last Modified By Organization Details Last Modified Time 01/13/2022 [id number] abdominal pain: care instructions Not available 01/13/2022 10:23:12 Brat diet consists of: Bananas Rice Applesauce [place]. Use this diet for 24- 48 hours [...] or . Not available 01/13/2022 10:25:10 06/12/2023 [id number] Your sore throat is possible caused by [...] x10e3 /uL 3.4-10 .8 Not Available [facility] ([facility]) [address] [facility], [place], [address], 01/14/2022 12:06:15 01/14/20 22 01/14/2022 CBC WITH DIFFE RENTI AL/PL ATELE T RBC 5.15 x10e6 /uL 4.14-5 .80 Not Available [facility] ([facility]) [address] [facility], [place], [address], 01/14/2022 12:06:15 01/14/20 22 01/14/2022 CBC WITH DIFFE RENTI AL/PL ATELE T hemoglobin 16.0 g/dL 13.0-1 7.7 Not Available [facility] ([facility]) [address] [facility], [place], [address], 01/14/2022 12:06:15 01/14/20 22 01/14/2022 CBC WITH DIFFE RENTI AL/PL ATELE T hematocrit 46.1 % 37.5-5 1.0 Not Available [facility] ([facility]) [address] [facility], [place], [address], 01/14/2022 12:06:15 01/14/20 22 01/14/2022 CBC WITH DIFFE RENTI AL/PL ATELE T MCV 90 fL 79-97 Not Available [facility] ([facility]) [address] [facility], [place], [address], 01/14/2022 12:06:15 01/14/20 22 01/14/2022 CBC WITH DIFFE RENTI AL/PL ATELE T MCH 31.1 pg 26.6-3 3.0 Not Available [facility] ([facility]) [address] [place], [address], 01/14/2022 12:06:15 01/14/20 22 01/14/2022 CBC WITH DIFFE RENTI AL/PL ATELE T MCHC 34.7 g/dL 31.5-3 5.7 Not Available [facility] ([facility]) [address] [facility], [place], [address], 01/14/2022 12:06:15 01/14/20 22 01/14/2022 CBC WITH DIFFE RENTI AL/PL ATELE T RDW 12.3 % 11.6-1 5.4 Not Available [facility] ([facility]) [address] [facility], [place], [address], 01/14/2022 12:06:15 01/14/20 22 01/14/2022 CBC WITH DIFFE RENTI AL/PL ATELE T platelets 137 x10e3 /uL 150-45 0 below low normal Actua l plate let count may be somew hat highe r than repor urbano due to aggre gatio n of plate lets in this sampl e. Not Available [facility] ([facility]) [address] [facility], [place], [address], 01/14/2022 12:06:15 01/14/20 22 01/14/2022 CBC WITH DIFFE RENTI AL/PL ATELE T neutrophils 64 % not estab. Not Available [facility] ([facility]) [address] [place], [address], 01/14/2022 12:06:15 01/14/20 22 01/14/2022 CBC WITH DIFFE RENTI AL/PL ATELE T lymphs 23 % not estab. Not Available [facility] ([facility]) [address] [place], [address], 01/14/2022 12:06:15 01/14/20 22 01/14/2022 CBC WITH DIFFE RENTI AL/PL ATELE T monocytes 10 % not estab. Not Available [facility] ([facility]) [address] [facility], [place], [address], 01/14/2022 12:06:15 01/14/20 22 01/14/2022 CBC WITH DIFFE RENTI AL/PL ATELE T eos 2 % not estab. Not Available [facility] ([facility]) [address] [facility], [place], [address], 01/14/2022 12:06:15 01/14/20 22 01/14/2022 CBC WITH DIFFE RENTI AL/PL ATELE T basos 1 % not estab. Not Available [facility] ([facility]) [address] [facility], [place], [address], 01/14/2022 12:06:15 01/14/20 22 01/14/2022 CBC WITH DIFFE RENTI AL/PL ATELE T immature cells CONCESSION WORKER Not Available [facility] ([facility]) [address] [place], [address], 01/14/2022 12:06:15 01/14/20 22 01/14/2022 CBC WITH DIFFE RENTI AL/PL ATELE T neutrophils (absolute) 3.6 x10e3 /uL 1.4-7. 0 Not Available [facility] ([facility]) [address] [facility], [place], [address], 01/14/2022 12:06:15 01/14/20 22 01/14/2022 CBC WITH DIFFE RENTI AL/PL ATELE T lymphs (absolute) 1.3 x10e3 /uL 0.7-3. 1 Not Available [facility] ([facility]) [address] [place], [address], 01/14/2022 12:06:15 01/14/20 22 01/14/2022 CBC WITH DIFFE RENTI AL/PL ATELE T monocytes(ab solute) 0.6 x10e3 /uL 0.1-0. 9 Not Available [facility] ([facility]) [address] [facility], [place], [address], 01/14/2022 12:06:15 01/14/20 22 01/14/2022 CBC WITH DIFFE RENTI AL/PL ATELE T eos (absolute) 0.1 x10e3 /uL 0.0-0. 4 Not Available [facility] ([facility]) [address] [facility], [place], [address], 01/14/2022 12:06:15 01/14/20 22 01/14/2022 CBC WITH DIFFE RENTI AL/PL ATELE T baso (absolute) 0.1 x10e3 /uL 0.0-0. 2 Not Available [facility] ([facility]) [address] [facility], [place], [address], 01/14/2022 12:06:15 01/14/20 22 01/14/2022 CBC WITH DIFFE RENTI AL/PL ATELE T immature granulocytes 0 % not estab. Not Available [facility] ([facility]) [address] [facility], [place], [address], 01/14/2022 12:06:15 01/14/20 22 01/14/2022 CBC WITH DIFFE RENTI AL/PL ATELE T immature grans (abs) 0.0 x10e3 /uL 0.0-0. 1 Not Available [facility] ([facility]) [address] [facility], [place], [address], 01/14/2022 12:06:15 01/14/20 22 01/14/2022 CBC WITH DIFFE RENTI AL/PL ATELE T NRBC CONCESSION WORKER Not Available [facility] ([facility]) [address] [facility], [place], [address], 01/14/2022 12:06:15 01/14/20 22 01/14/2022 CBC WITH DIFFE RENTI AL/PL ATELE T hematology comments: Note: Verif ied by micro wlimar bolton n. Not Available [facility] ([facility]) [address] [facility], [place], [address], 01/14/2022 12:06:15 01/14/20 22 01/14/2022 COMP. METAB OLIC PANEL (14) glucose 100 mg/dL 70-99 above high normal Not Available [facility] ([facility]) [address] [facility], [place], [address], 01/14/2022 08:07:11 01/14/20 22 01/14/2022 COMP. METAB OLIC PANEL (14) BUN 18 mg/dL 6-20 Not Available [facility] ([facility]) [address] [facility], [place], [address], 01/14/2022 08:07:11 01/14/20 22 01/14/2022 COMP. METAB OLIC PANEL (14) creatinine 0.99 mg/dL 0.76-1 .27 Not Available [facility] ([facility]) [address] [place], [address], 01/14/2022 08:07:11 01/14/20 22 01/14/2022 COMP. METAB OLIC PANEL (14) eGFR 106 mL/mi n/1.7 3 >59 Not Available [facility] ([facility]) [address] [place], [address], 01/14/2022 08:07:11 01/14/20 22 01/14/2022 COMP. METAB OLIC PANEL (14) BUN/creatini ne ratio 18 9-20 Not Available [facility] ([facility]) [address] [place], [address], 01/14/2022 08:07:11 01/14/20 22 01/14/2022 COMP. METAB OLIC PANEL (14) sodium 140 mmol/ L 134-14 4 Not Available [facility] ([facility]) [address] [place], [address], 01/14/2022 08:07:11 01/14/20 22 01/14/2022 COMP. METAB OLIC PANEL (14) potassium 4.6 mmol/ L 3.5-5. 2 Not Available [facility] ([facility]) [address] [place], [address], 01/14/2022 08:07:11 01/14/20 22 01/14/2022 COMP. METAB OLIC PANEL (14) chloride 103 mmol/ L 96-106 Not Available [facility] ([facility]) [address] [place], [address], 01/14/2022 08:07:11 01/14/20 22 01/14/2022 COMP. METAB OLIC PANEL (14) carbon dioxide, total 25 mmol/ L 20-29 Not Available [facility] ([facility]) [address] [place], [address], 01/14/2022 08:07:11 01/14/20 22 01/14/2022 COMP. METAB OLIC PANEL (14) calcium 9.6 mg/dL 8.7-10 .2 Not Available [facility] ([facility]) [address] [place], [address], 01/14/2022 08:07:11 01/14/20 22 01/14/2022 COMP. METAB OLIC PANEL (14) protein, total 7.0 g/dL 6.0-8. 5 Not Available [facility] ([facility]) [address] [place], [address], 01/14/2022 08:07:11 01/14/20 22 01/14/2022 COMP. METAB OLIC PANEL (14) albumin 4.9 g/dL 4.1-5. 2 Not Available [facility] ([facility]) [address] [place], [address], 01/14/2022 08:07:11 01/14/20 22 01/14/2022 COMP. METAB OLIC PANEL (14) globulin, total 2.1 g/dL 1.5-4. 5 Not Available [facility] ([facility]) [address] [place], [address], 01/14/2022 08:07:11 01/14/20 22 01/14/2022 COMP. METAB OLIC PANEL (14) A/G ratio 2.3 1.2-2. 2 above high normal Not Available [facility] ([facility]) [address] [place], [address], 01/14/2022 08:07:11 01/14/20 22 01/14/2022 COMP. METAB OLIC PANEL (14) bilirubin, total 0.9 mg/dL 0.0-1. 2 Not Available [facility] ([facility]) [address] [facility], [place], [address], 01/14/2022 08:07:11 01/14/20 22 01/14/2022 COMP. METAB OLIC PANEL (14) alkaline phosphatase 50 IU/L 44-121 Not Available [facility]) [address] [facility], [place], [address], 01/14/2022 08:07:11 01/14/20 22 01/14/2022 COMP. METAB OLIC PANEL (14) AST (SGOT) 20 IU/L 0-40 Not Available [facility] ([facility]) [address] [facility] [place], [address], 01/14/2022 08:07:11 01/14/20 22 01/14/2022 COMP. METAB OLIC PANEL (14) ALT (SGPT) 24 IU/L 0-44 Not Available [facility] ([facility]) [address] [facility], [place], [address], 01/14/2022 08:07:11 01/14/20 22 01/14/2022 LIPAS E lipase 18 U/L 13-78 Not Available [facility] ([facility]) [address] [facility], [place], [address], 01/14/2022 08:07:12 06/12/19 24 06/16/2023 BETA STREP GP A CULTU RE beta strep gp A culture NEGATI VE Refer ence Range : Negat shahla Not Available [facility] ([facility]) [address] [facility], [place], [address], 06/16/2023 06:08:15 06/12/19 24 06/12/2023 rapid strep group A, throa t Unknown Analyte negati ve Not Available [address] [place] [address] [facility] [address] [place] [address], [phone], 06/12/2023 16:10:14 06/12/19 24 06/12/2023 rapid strep group A, throa t Unknown Analyte negati ve Not Available [address] [place] [address] [facility] [address] [place] [address], [address], 06/12/2023 16:10:14 06/12/19 24 06/12/2023 rapid strep group A, throa t Unknown Analyte yes Not Available [address] [place], [place] [address] [address] [place] [address], [phone], 06/12/2023 16:10:14 Result Notes None recorded. 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 Medical Equipment None Reported. Allergies Allergen ID Allergen Name Allergen Category Reaction Reaction Severity Criticality Documentation Date Start Date Code Code System Note Provider Name and Address Organization Details Recorded Time 85424 Product containin g penicilli n (product) medicatio n Not available Not available Not available 01/13/2022 20343 6213 SNOMED TALIB chaparro [facility] 2 09:01:49 Medications Not known to be on any medication Vitals Date Recorded Body height Body mass index (BMI) Body weight Body temperature Respiratory rate Oxygen saturation Heart rate Systolic And Diastolic Provider Name and Address Organization Details Last Updated DateTime 4 170.18 cm 31.3 kg/m2 86672.4 7 g 98.7 [degF] 18 /min 98 % 76 /min 107/74 mm[Hg] Mariana Pérez [place] [facility] 4 16:12:05 Date Recorded Body height Body mass index (BMI) Body weight Pain severity - 0-10 verbal numeric rating [Score] - Reported Respiratory rate Heart rate Oxygen saturation Body temperature Systolic And Diastolic Provider Name and Address Organization Details Last Updated DateTime 2 170.18 cm 31.3 kg/m2 75475.4 7 g 4 20 /min 62 /min 98 % 98.5 [degF] 144/81 mm[Hg] TALIB YOUNG [employer] [facility] 2 09:03:04 Social History Question Answer Notes LastModified by [employer] Details LastModified Time Tobacco Smoking Status Never Smoker TALIB chaparro [facility] 01/13/2022 09:02:39 Have You Had A [...] Functional Status Question Answer Note LastModified by [employer] Details LastModified Time Do you use any [...] Influenza, split virus, quadrivalent, preservative 9 completed Mariana chaparro PA - [facility] 06/12/2023 16:06:33 COVID-19, mRNA, LNP-S, PF, 30 mcg/0.3 mL dose 1 completed Mariana chaparro PA - [facility] 06/12/2023 16:06:33 COVID-19, mRNA, LNP-S, PF, 30 mcg/0.3 mL dose 1 completed Mariana chaparro PA - [facility] 06/12/2023 16:06:33 Past Encounters Encounter ID Performer Location Encounter Start Date Encounter Closed Date Diagnosis/Indication Diagnosis SNOMED-CT Code Diagnosis ICD10 Code Diagnosis IMO Codes Diagnosis Note [id number] [facility] [facility] [address] [place] [address] 06/15/2019 18:59:41 06/15/2019 19:20:55 [id number] [address] [facility] [address] [place] [address] 09/20/2018 19:14:49 09/20/2018 19:54:39 [id number] [address] [place] [address] 12/05/2018 18:06:23 12/05/2018 19:01:40 [id number] [place] [address] 05/03/2020 19:31:41 05/03/2020 19:56:38 [id number] [place] [address] [address] 01/13/2022 08:55:23 01/13/2022 10:34:42 Abdominal pain 29282174 R10.9 [id number] JUJU Parsons [address] [address] 06/12/2023 15:54:47 06/12/2023 16:36:40 Acute pharyngitis 653941691 J02.9 Health Concerns Section Related Observation LastModified by Organization Detai ls LastModified Time None Recorded Concern Status LastModified by Organization Details LastModified Time None Recorded Advance Directives Directive None Recorded Payers Insurance Date Sequence Insurance Name Policy Number Policy Christianson Covered Member ID Christianson Member ID Guarantor Name 06/12/2023 1 [facility] () Alexander Vasquez [id number] Alexander Vasquez Notes Date Note Type Note Provider Name and Address Organization Details Recorded Time 2 text/html R mid abdominal pain x 4-5 days. Described as constant, stabbing, pain level 4/10. Denies preceding food choices. No pain meds attempted. Katherine Cardona DO [address] [facility] [place], [address], PA - [facility] 01/13/2022 11:09:54 4 [...] patient reportsno sick contacts. JUJU Mike [address] [facility] [place], [address], PA - [facility] 06/12/2023 16:34:32
--- OUTSIDE RECORDS SUMMARY | 2025-02-01 08:35 | XMS_ITS | Encounter Summary ---
Author Organization [facility] Address [address] [facility] [address] [place] [address] Phone Care Team Providers Care Airport Utility Worker Name Role Phone Aldair Baca MD Primary Care Provider Encounter Details Date Type Department Care Team (Late st Contact Info) Description 12/13/2024 Lab Requisition [facility] Lab Main [address] [place], [place] [phone] Raghav Lombardo MD [address] [place] [phone] [email or web address] Organic azoospermia Social History Tobacco Use Types [...] as of this encounter Plan of Treatment Upcoming Encounters Date Type Department Care Team (Late st Contact Info) Description 02/26/2025 3:00 PM EST Office Visit [facility] [address] [facility], [address] [place] [address] Darci Vides MD [address] [place] [address] [email or web address] documented as of this encounter Procedures Procedure [...] findings are etiologically nonspecific. 12/17/2024 10:43 AM [facility] at 1043 EST Clinical History Infertility. 12/17/2024 10:43 AM [facility] Gross Description A. TESTES; RIGHT TESTIS: [...] toto in cassette B1. 12/17/2024 10:43 AM [facility] Grossed By Dixon Barker 12/17/2024 10:43 AM [facility] Result Priority Level Routine 12/17/2024 10:43 AM [facility] Disclaimer By their signature above, the [...] provided in this report. 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 It is not the complete legal health record.[facility]
== END 2025-02-01 09:15 | disposition home or self-care (01) ==
LOC: HO.HSMS 08:33
PROVIDERS: PCP Family Medicine; Visit Provider Physician Assistant Medical
DX: G47.19 Other hypersomnia (principal); R06.83 Snoring
CPT/HCPCS: 99204

== ENCOUNTER → 2025-02-01 08:32 | Outpatient (BNVA) | payer OTHER, SELFPAY | PROVIDERS: PCP Family Medicine; Visit Provider Physician Assistant Medical | DX: G47.19 Other hypersomnia (principal); R06.83 Snoring; R25.2 Cramp and spasm; G47.13 Recurrent hypersomnia | CPT/HCPCS: 99202 ==